=== PATIENT | female | born 1965 | race American Indian/Alaskan Native ===

== ENCOUNTER 2017-12-20 12:01 | Emergency (ER) | payer OTHER, BC ==
[2017-12-20 12:30] VITALS: TEMP 98.6; O2SAT 100
[2017-12-20] MEDS ORDERED: Albuterol-Ipratrop 3 mg / 0.5 (3 ml) UD IH STA (12:46)
[2017-12-20 13:04] LABS: BASO % 0.4 % (0.0-2.0); EOS # 0.1 K/uL (0.0-0.7); EOS % 0.9 % (0.0-4.0); HEMOGLOBIN 12.5 g/dL (11.0-16.0); LYMPH # 1.8 K/uL (1.0-4.3); MEAN CELL VOLUME 88.7 fL (81.0-99.0); MEAN CORPUSCULAR HEMOGLOBIN 30.3 pg (27.0-31.0); MEAN CORPUSCULAR HGB CONC 34.2 g/dL (33.0-37.0); MEAN PLATELET VOLUME 9.9 fL (7.2-11.7); MONO # 0.5 K/uL (0.0-0.8); MONO % 7.7 % (0.0-10.0); NEUT # 3.8 K/uL (1.8-7.0); NRBC % 0.1 % (0.0-2.0); RBC 4.11 Mil/uL (3.80-5.20); RED CELL DISTRIBUTION WIDTH 13.7 % (11.5-14.5); WHITE BLOOD COUNT 6.1 K/uL (4.8-10.8)
[2017-12-20] MEDS ORDERED: Albuterol-Ipratrop 3 mg / 0.5 (3 ml) UD ONE (13:04)
--- NOTE | 2017-12-20 13:06 | C.PDOC ---
History Of Present Illness 52 y/o female presents to ED with c/o headache, cp, sob, nausea and headache developed earlier today while exposed to fume at work. Patient states same symptoms developed last week and was [place] [facility] but states symptoms reoccurred today. Patient reports other coworkers experienced same symptoms and denies fever, chills, nausea, vomiting, cough or any other complaints at this time. Time Seen by Provider: 12/20/17 12:14 Chief Complaint (Nursing): Chest Pain History Per: Patient History/Exam Limitations: no limitations Onset/Duration Of Symptoms: Days Current Symptoms Are (Timing): Still Present Past Medical History Reviewed: Historical Data, Nursing Documentation, Vital Signs Vital Signs: Last Vital Signs Temp 98.6 F 12/20/17 14:38 Pulse 74 12/20/17 14:38 Resp 18 12/20/17 14:38 BP 132/76 12/20/17 14:38 Pulse Ox 100 12/20/17 17:41 - Medical History PMH: HTN Surgical History: No Surg Hx - [facility] Procedures LAPAROSCOP LYSIS-PERITONEAL ADHES (03/22/04) LOCAL VULVAR EXCIS NEC (03/22/04) OTH LAPAROSCOP LOCAL EXCIS/DESTRUCT OVARY (03/22/04) UTERINE LES DESTRUCT NEC (03/22/04) Family History: States: No Known Family Hx - Social History Hx Alcohol Use: Yes Hx Substance Use: No - Immunization History Hx Tetanus Toxoid Vaccination: No Hx Influenza Vaccination: No Hx Pneumococcal Vaccination: No Review Of Systems Constitutional: Negative for: Fever, Chills Cardiovascular: Positive for: Chest Pain Respiratory: Positive for: Shortness of Breath. Negative for: Cough Gastrointestinal: Positive for: Nausea Neurological: Positive for: Headache. Negative for: Weakness, Numbness Physical Exam - Physical Exam Appears: Non-toxic, No Acute Distress Skin: Warm, Dry, No Rash Head: Atraumatic, Normacephalic Eye(s): bilateral: Normal Inspection Oral Mucosa: Moist Neck: Normal ROM, Supple Cardiovascular: Rhythm Regular Respiratory: Normal Breath Sounds, No Rales, No Rhonchi, No Wheezing Gastrointestinal/Abdominal: Soft, No Tenderness, No Guarding, No Rebound Neurological/Psych: Oriented x3, Normal Speech ED Course And Treatment - Laboratory Results Result Diagrams: 12/20/17 12:58 12/20/17 12:58 Lab Interpretation: Normal Urine POC: Negative ECG: Interpreted By Me ECG Rhythm: Sinus Rhythm ECG Interpretation: Normal Rate From EC O2 Sat by Pulse Oximetry: 100 (RA) Pulse Ox Interpretation: Normal - Radiology CXR: Viewed By Me, Read By Radiologist CXR Interpretation: Yes: Cardiomegaly Progress Note: Treated with IVF NSS and duoneb. On re-evaluation lungs clear, in no distress Reassessment Condition: Improved Disposition Counseled Patient/Family Regarding: Studies Performed, Diagnosis, Need For Followup, Rx Given - Disposition Referrals: Zoran Kessler [Staff Provider] - Disposition: HOME/ ROUTINE Disposition Time: 16:00 Condition: GOOD Additional Instructions: Follow up with your PMD for further evaluation Return to ED if any increase symptoms Prescriptions: Albuterol HFA [Ventolin HFA 90 mcg/actuation (8 g)] 2 puff IH [id number] PRN #1 puff PRN Reason: Cough Instructions: Shortness of Breath (Dyspnea) Forms: [employer] (Yi) - POA Present On Arrival: None - Clinical Impression Clinical Impression: Dyspnea - PA / LUG LOADER / Resident Statement MD/DO has reviewed & agrees with the documentation as recorded. - Scribe Statement The provider has reviewed the documentation as recorded by the Maniiblibia Heard All medical record entries made by the King were at my direction and personally dictated by me. I have reviewed the chart and agree that the record accurately reflects my personal performance of the history, physical exam, medical decision making, and the department course for this patient. I have also personally directed, reviewed, and agree with the discharge instructions and disposition.
[2017-12-20 13:19] LABS: ALB/GLOB RATIO 1.2 (1.0-2.1); ALBUMIN 4.2 g/dL (3.5-5.0); ALT/SGPT 37 U/L (9-52); AST/SGOT 30 U/L (14-36); BLOOD UREA NITROGEN 10 mg/dL (7-17); CALCIUM 9.1 mg/dl (8.6-10.4); GFR AFRICAN-AMERICAN > 60; GFR NON-AFRICAN AMERICAN > 60
--- NOTE | 2017-12-20 13:30 | RAD ---
HISTORY: COMPARISON: No prior. TECHNIQUE: Chest PA and lateral FINDINGS: LINES AND TUBES: None. LUNG AND PLEURA: The lungs are well inflated and clear. No pleural effusion or pneumothorax. HEART AND MEDIASTINUM: There is mild cardiomegaly. The hilar and mediastinal contours are within normal limits. SKELETAL STRUCTURES: The bony structures are within normal limits for the patient's age. VISUALIZED UPPER ABDOMEN: Normal. OTHER FINDINGS: None. IMPRESSION: No active pulmonary disease. Mild cardiomegaly.
[2017-12-20 14:12] LABS: HCG,QUALITATIVE URINE NEGATIVE (NEGATIVE)
[2017-12-20 14:16] LABS: SQUAMOUS EPITHIAL 2 /hpf (0-5); URINE BACTERIA OCC (<OCC); URINE BILIRUBIN NEGATIVE (NEGATIVE); URINE BLOOD NEGATIVE (NEGATIVE); URINE CLARITY Hazy (Clear); URINE COLOR Yellow (YELLOW); URINE GLUCOSE (UA) NORMAL (Normal); URINE LEUKOCYTE ESTERASE NEG Leu/uL (Negative); URINE PROTEIN NEGATIVE (NEGATIVE); URINE UROBILINOGEN NORMAL mg/dL (0.2-1.0)
[2017-12-20 14:39] VITALS: BP 132/76; PULSE 74; RESP 18
== END 2017-12-20 14:40 | disposition home or self-care (01) ==
LOC: C.ER 12:01
DX: R06.00 Dyspnea, unspecified (principal); I10 Essential (primary) hypertension

== ENCOUNTER 2018-04-10 12:30 | Inpatient (IN) | payer BC ==
--- NOTE | 2018-04-10 13:23 | C.PDOC ---
History Of Present Illness 52 year old female, whose PMHx includes Hypertension, colon cancer, and colitis, presents to the ED for evaluation of back pain which has been intermittent for 6 months, but worsened over the past 2 days. Patient reports pain to her bilateral flank area. She also reports foul-smelling urine intermittently for the past 6 months. Patient was evaluated in [facility] four days ago, was diagnosed with Urinary Tract Infection and started on Cipro. She received a call last night that her urine culture has demonstrated to be resistant to multiple antibiotics. Patient states she is allergic to penicillin and was told there were a limited variety of antibiotics she can be given for treatment. Patient was also told that her back pain might indicate a kidney infection, and was sent to the ED by her PMD for further evaluation. Patient also reports she had three episodes of mucoid diarrhea (non-bloody) yesterday, denies having any episodes today. She denies fever, chills, and abdominal pain at this time. Family history: HTN and DM Surgical history: hysterectomy, appendectomy, partial colon resection social history: admits to occasional drinking, denies tobacco or drug use PMD: Dr. Livingston Time Seen by Provider: 04/10/18 13:09 Chief Complaint (Nursing): Back Pain History Per: Patient History/Exam Limitations: no limitations Onset/Duration Of Symptoms: Days (2), Intermittent Episodes Current Symptoms Are (Timing): Worse Quality Of Discomfort: "Pain" Additional History Per: Patient Past Medical History Reviewed: Historical Data, Nursing Documentation, Vital Signs Vital Signs: Last Vital Signs Temp 97.8 F 04/10/18 12:44 Pulse 73 04/10/18 12:44 Resp 20 04/10/18 12:44 BP 157/89 H 04/10/18 12:44 Pulse Ox 99 04/10/18 12:44 - Medical History PMH: HTN Surgical History: Appendectomy - [facility] Procedures LAPAROSCOP LYSIS-PERITONEAL ADHES (03/22/04) LOCAL VULVAR EXCIS NEC (03/22/04) OTH LAPAROSCOP LOCAL EXCIS/DESTRUCT OVARY (03/22/04) UTERINE LES DESTRUCT NEC (03/22/04) Family History: States: Unknown Family Hx - Social History Hx Alcohol Use: Yes Hx Substance Use: No - Immunization History Hx Tetanus Toxoid Vaccination: No Hx Influenza Vaccination: No Hx Pneumococcal Vaccination: No Review Of Systems Constitutional: Negative for: Fever, Chills Gastrointestinal: Positive for: Diarrhea. Negative for: Abdominal Pain Musculoskeletal: Positive for: Back Pain Physical Exam - Physical Exam Appears: Non-toxic, No Acute Distress Skin: Warm, Dry Head: Atraumatic, Normacephalic Eye(s): bilateral: PERRL, EOMI Oral Mucosa: Moist Throat: No Erythema, No Exudate Neck: Normal ROM, Trachea Midline Lymphatic: No Adenopathy Chest: Symmetrical Cardiovascular: Rhythm Regular, No Murmur Respiratory: Normal Breath Sounds, No Wheezing Gastrointestinal/Abdominal: Soft, Tenderness (diffuse ), No Distention, No Guarding, No Rebound Back: CVA Tenderness (bilaterally ), No Muscle Spasm Extremity: Normal ROM, No Deformity Neurological/Psych: Oriented x3, Normal Motor, Normal Sensation ED Course And Treatment - Laboratory Results Result Diagrams: 04/10/18 14:42 04/10/18 14:44 O2 Sat by Pulse Oximetry: 99 (on RA) Pulse Ox Interpretation: Normal Medical Decision Making Medical Decision Making: Impression: abdominal pain vs urinary tract infection vs flank pain Differential Diagnoses include but are not limited to: pyelonephritis vs colitis vs musculoskeletal pain vs sepsis vs infectious diarrhea Progress: Bloodwork, urinalysis, CT A/P ordered and reviewed. IV Fluids given. SNEHAL Moncada at [facility] who faxed report of sensitivities of urine culture. Labs demonstrate continued UTI but otherwise no significant abnormalities. Pt to be hospitalized for pyelonephritis failed outpatient treatment. SNEHAL Neely Hospitalist. Disposition - Disposition Disposition Time: 17:00 Condition: FAIR - POA Present On Arrival: None - Clinical Impression Clinical Impression: Pyelonephritis - Scribe Statement The provider has reviewed the documentation as recorded by the Scribe (Ese Neely) Provider Attestation: All medical record entries made by the Scribe were at my direction and personally dictated by me. I have reviewed the chart and agree that the record accurately reflects my personal performance of the history, physical exam, medical decision making, and the department course for this patient. I have also personally directed, reviewed, and agree with the discharge instructions and disposition.
[2018-04-10] MEDS ORDERED: Iohexol 240 (50 ml) PO STA (13:26)
[2018-04-10] MEDS ORDERED: Sodium Chloride 0.9% 500 ML IV ONE (13:26)
[2018-04-10 13:52] LABS: SQUAMOUS EPITHIAL 10 /hpf (0-5); URINE BACTERIA MOD (<OCC); URINE BILIRUBIN NEGATIVE (NEGATIVE); URINE BLOOD NEGATIVE (NEGATIVE); URINE CLARITY Hazy (Clear); URINE COLOR Yellow (YELLOW); URINE GLUCOSE (UA) NORMAL (Normal); URINE LEUKOCYTE ESTERASE NEG Leu/uL (Negative); URINE PROTEIN NEGATIVE (NEGATIVE); URINE UROBILINOGEN NORMAL mg/dL (0.2-1.0)
[2018-04-10] MEDS ORDERED: Iohexol 240 (50 ml) ONE (14:14)
[2018-04-10] MEDS ORDERED: Sodium Chloride 0.9% 1,000 ML ONE ×2 (14:41→18:16)
[2018-04-10 14:45] LABS: BASO % 0.8 % (0.0-2.0); EOS # 0.1 K/uL (0.0-0.7); HEMOGLOBIN 14.4 g/dL (11.0-16.0); LYMPH # 1.8 K/uL (1.0-4.3); LYMPH % 31.6 % (20.0-40.0); MEAN CELL VOLUME 88.1 fL (81.0-99.0); MEAN CORPUSCULAR HEMOGLOBIN 30.2 pg (27.0-31.0); MEAN CORPUSCULAR HGB CONC 34.3 g/dL (33.0-37.0); MEAN PLATELET VOLUME 9.9 fL (7.2-11.7); MONO # 0.5 K/uL (0.0-0.8); MONO % 8.5 % (0.0-10.0); NEUT # 3.2 K/uL (1.8-7.0); NEUT % 57.1 % (50.0-75.0); RBC 4.76 Mil/uL (3.80-5.20); RED CELL DISTRIBUTION WIDTH 13.1 % (11.5-14.5); WHITE BLOOD COUNT 5.6 K/uL (4.8-10.8)
[2018-04-10 15:02] LABS: ALB/GLOB RATIO 1.1 (1.0-2.1); ALBUMIN 4.2 g/dL (3.5-5.0); ALT/SGPT 27 U/L (9-52); AST/SGOT 24 U/L (14-36); BLOOD UREA NITROGEN 12 mg/dL (7-17); CALCIUM 9.6 mg/dl (8.6-10.4); GFR NON-AFRICAN AMERICAN > 60; LIPASE 131 U/L (23-300)
[2018-04-10] MEDS ORDERED: Tobramycin Sulfate 40 mg/ml (2ml) Inj IVPB STA (16:47)
[2018-04-10] MEDS ORDERED: TOBRAMYCIN SULFATE IVPB SCH (17:00)
[2018-04-10] MEDS ORDERED: SODIUM CHLORIDE 0.9% IVPB SCH (17:00)
--- NOTE | 2018-04-10 17:05 | CP.PCM.HP ---
<Mayuri Whitt - Last Filed: 04/10/18 18:50> History of Present Illness - History of Present Illness History of Present Illness: History and Physical - Hospitalist Service CC: UTI symptoms, back pain HPI: Patient is a 52 year old female with past medical history of hypertension, colitis, colon cancer s/p resection in 2014 who presents to the emergency department for urinary tract infection. Patient states that she was seen at urgent care for foul smelling urine and was prescribed Ciprofloxacin 4 days ago. Patient received a call from her PMD today stating the urine culture was resistant to both ciprofloxacin and bactrim and instructed her to come to the emergency dept. Patient states that for the past six months she has been experiencing right sided low back pain that is now radiating to the left. Pain is constant in nature, worse with movement. Denies any alleviating factors. Rates the pain a 9/10 on pain scale. She admits to using Tylenol and Ibuprofen at home with minimal relief. She also states that she has been having foul smelling urine since before October 2017. She admits to some urinary incontinence, where she loses urine before making it to the bathroom. She denies any dysuria or pain with urination. For the past few days, patient reports having lower abdominal pain. States that the pain "feels like my intestines are raw". She has 3-4 episodes of mucoid diarrhea yesterday, denies any bowel movement today. She also admits to having a fever of 101.0 yesterday as well that improved with Tylenol. Reports that her last colitis flare up was a couple of months ago. She denies nausea/vomiting, headaches, dizziness, cp, palpitations, sob, saddle anes thesia, loss of bowel function, blood in the stool, hematuria. 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 History: Mother - Hypertension, DM; Father - HTN, CVA at age 70 [employer] History: Sexually active, admits to having occasional physiologic discharge Present on Admission - Present on Admission Any Indicators Present on Admission: No Past Patient History - Past Social History Smoking Status: Never Smoked - CARDIAC Hx Hypertension: Yes - HEMATOLOGICAL/ONCOLOGICAL Hx Cancer: Yes (colon) - GASTROINTESTINAL Hx Colitis: Yes - GENITOURINARY/GYNECOLOGICAL Hx Urinary Tract Infection: Yes Other/Comment: kidney infections - PSYCHIATRIC Hx Substance Use: No - SURGICAL HISTORY Hx Appendectomy: Yes - ANESTHESIA Hx Anesthesia: Yes Hx Anesthesia Reactions: No Meds Allergies/Adverse Reactions: Allergies Allergy/AdvReac Type Severity Reaction Status Date / Time Penicillins Allergy Verified 04/10/18 12:50 Physical Exam - Constitutional Appears: Non-toxic, No Acute Distress - Head Exam Head Exam: ATRAUMATIC, NORMAL INSPECTION, NORMOCEPHALIC - Eye Exam Eye Exam: EOMI, Normal appearance Pupil Exam: NORMAL ACCOMODATION - ENT Exam ENT Exam: Mucous Membranes Moist - Neck Exam Neck exam: Positive for: Full Rom - Respiratory Exam Respiratory Exam: Clear to Auscultation Bilateral, NORMAL BREATHING PATTERN. absent: Rales, Rhonchi, Wheezes - Cardiovascular Exam Cardiovascular Exam: REGULAR RHYTHM, +S1, +S2. absent: Systolic Murmur - GI/Abdominal Exam GI & Abdominal Exam: Distended (Mildly distended), Normal Bowel Sounds, Soft, Tenderness (RLQ, LLQ, suprapubic tenderness to palpation). absent: Guarding, Rebound, Rigid - Extremities Exam Extremities exam: Positive for: full ROM, normal inspection, pedal pulses present. Negative for: pedal edema, tenderness - Back Exam Back exam: CVA tenderness (L), CVA tenderness (R). absent: rash noted - Neurological Exam Neurological exam: Alert, CN II-XII Intact, Oriented x3 - Psychiatric Exam Psychiatric exam: Normal Affect, Normal Mood - Skin Skin Exam: Dry, Normal Color, Warm Results - Vital Signs Recent Vital Signs: Last Vital Signs Temp 97.6 F 04/10/18 16:58 Pulse 65 04/10/18 16:58 Resp 18 04/10/18 16:58 BP 122/83 04/10/18 16:58 Pulse Ox 98 04/10/18 16:58 - Labs Result Diagrams: 04/10/18 14:42 04/10/18 14:44 Labs: Laboratory Results - last 24 hr 04/10/18 04/10/18 04/10/18 13:37 14:42 14:44 WBC 5.6 RBC 4.76 Hgb 14.4 Hct 41.9 MCV 88.1 MCH 30.2 MCHC 34.3 RDW 13.1 Plt Count 188 MPV 9.9 Neut % (Auto) 57.1 Lymph % (Auto) 31.6 [place] % (Auto) 8.5 Eos % (Auto) 2.0 Baso % (Auto) 0.8 Neut # (Auto) 3.2 Lymph # (Auto) 1.8 [place] # (Auto) 0.5 Eos # (Auto) 0.1 Baso # (Auto) 0.0 Sodium 143 Potassium 4.0 Chloride 106 Carbon Dioxide 23 Anion Gap 18 BUN 12 Creatinine 0.8 Est GFR ( Amer) > 60 Est GFR (Non-Af Amer) > 60 Random Glucose 83 Lactic Acid Calcium 9.6 Total Bilirubin 0.6 AST 24 ALT 27 Alkaline Phosphatase 126 Total Protein 8.2 Albumin 4.2 Globulin 4.0 H Albumin/Globulin Ratio 1.1 Lipase 131 Urine Color Yellow Urine Clarity Hazy Urine pH 6.0 Ur Specific [place] 1.017 Urine Protein Negative Urine Glucose (UA) Normal Urine Ketones Negative Urine Blood Negative Urine Nitrate Positive H Urine Bilirubin Negative Urine Urobilinogen Normal Ur Leukocyte Esterase Neg Urine WBC (Auto) 4 Urine RBC (Auto) 1 Ur Squamous Epith Cells 10 H Urine Bacteria Mod H 04/10/18 14:44 WBC RBC Hgb Hct MCV MCH MCHC RDW Plt Count MPV Neut % (Auto) Lymph % (Auto) [place] % (Auto) Eos % (Auto) Baso % (Auto) Neut # (Auto) Lymph # (Auto) [place] # (Auto) Eos # (Auto) Baso # (Auto) Sodium Potassium Chloride Carbon Dioxide Anion Gap BUN Creatinine Est GFR ( Amer) Est GFR (Non-Af Amer) Random Glucose Lactic Acid 1.3 Calcium Total Bilirubin AST ALT Alkaline Phosphatase Total Protein Albumin Globulin Albumin/Globulin Ratio Lipase Urine Color Urine Clarity Urine pH Ur Specific [place] Urine Protein Urine Glucose (UA) Urine Ketones Urine Blood Urine Nitrate Urine Bilirubin Urine Urobilinogen Ur Leukocyte Esterase Urine WBC (Auto) Urine RBC (Auto) Ur Squamous Epith Cells Urine Bacteria Assessment & Plan - Assessment and Plan (Free Text) Assessment: A/P: Patient is a 52 year old female with past medical history of hypertension, colon cancer s/p partial colon resection who was sent to the emergency department for urinary tract infection resistant to multiple antibiotics. Patient complaining of right sided low back pain, lower abdominal pain and diarrhea x 2 days with fever. Abdominal pain r/o Pyelonephritis vs Nephrolithiasis vs Diverticulitis -Stable, afebrile -We will admit inpatient -Antibiotics: Aztreonam 2gm Q8H IVPB -CT abd/pelvis PO contrast ordered, f/u official report -Diet: full liquid -Fluids: NS at 100cc/hr -Toradol 15mg Q6H prn, Tylenol 650mg Q6H prn fever -F/U stool cultures, fecal leukocytes, ova/parasites, c diff Urinary Tract Infection -Urine culture 04/06/18 grew E coli resistent to Bactrim, Ciprofloxacin, Ampicillin -UA on admission +nitrates, +squamous epithelial cells, moderate bacteria, urine culture pending -Repeat UA and urine culture ordered (clean catch) -Antibiotics: Aztreonam 2gm Q8H IVPB -Fluids: NS at 100cc/hr -Infectious Disease on consult, Dr Dunbar, help appreciated Upper respiratory tract infection -Patient with non-productive cough -Robitussin 100mg Q4H prn cough -F/U official CXR report Low Back pain -Lumbar Xray 01/2018 showed probable L5-S1 disc space narrowing -mild, no compression fractures (see full report) -Toradol 15mg Q6H prn pain History of Hypertension -Patient is on Lisinopril 5mg PO daily at home -Currently normatensive -Will monitor at this time Colon cancer s/p partial colon resection -Last colonoscopy was btw end of 2016-beginning of 2017, patient states it was normal -F/U CT abd/pelvis with PO contrast GI/DVT ppx -Protonix 40mg IVP daily -Lovenox 40mg SC daily Plan discussed with Dr Zaida Whitt DO PGY-2 <Raman Cerda - Last Filed: 04/11/18 07:13> Results - Vital Signs Recent Vital Signs: Last Vital Signs Temp 97.6 F 04/10/18 23:30 Pulse 61 04/10/18 23:30 Resp 20 04/10/18 23:30 BP 137/88 04/10/18 23:30 Pulse Ox 99 10/17/18 00:12 - Labs Result Diagrams: 04/10/18 14:42 04/10/18 14:44 Labs: Laboratory Results - last 24 hr 04/10/18 04/10/18 04/10/18 13:37 14:42 14:44 WBC 5.6 RBC 4.76 Hgb 14.4 Hct 41.9 MCV 88.1 MCH 30.2 MCHC 34.3 RDW 13.1 Plt Count 188 MPV 9.9 Neut % (Auto) 57.1 Lymph % (Auto) 31.6 [place] % (Auto) 8.5 Eos % (Auto) 2.0 Baso % (Auto) 0.8 Neut # (Auto) 3.2 Lymph # (Auto) 1.8 [place] # (Auto) 0.5 Eos # (Auto) 0.1 Baso # (Auto) 0.0 Sodium 143 Potassium 4.0 Chloride 106 Carbon Dioxide 23 Anion Gap 18 BUN 12 Creatinine 0.8 Est GFR ( Amer) > 60 Est GFR (Non-Af Amer) > 60 Random Glucose 83 Lactic Acid Calcium 9.6 Total Bilirubin 0.6 AST 24 ALT 27 Alkaline Phosphatase 126 Total Protein 8.2 Albumin 4.2 Globulin 4.0 H Albumin/Globulin Ratio 1.1 Lipase 131 Urine Color Yellow Urine Clarity Hazy Urine pH 6.0 Ur Specific [place] 1.017 Urine Protein Negative Urine Glucose (UA) Normal Urine Ketones Negative Urine Blood Negative Urine Nitrate Positive H Urine Bilirubin Negative Urine Urobilinogen Normal Ur Leukocyte Esterase Neg Urine WBC (Auto) 4 Urine RBC (Auto) 1 Ur Squamous Epith Cells 10 H Urine Bacteria Mod H 04/10/18 14:44 WBC RBC Hgb Hct MCV MCH MCHC RDW Plt Count MPV Neut % (Auto) Lymph % (Auto) [place] % (Auto) Eos % (Auto) Baso % (Auto) Neut # (Auto) Lymph # (Auto) [place] # (Auto) Eos # (Auto) Baso # (Auto) Sodium Potassium Chloride Carbon Dioxide Anion Gap BUN Creatinine Est GFR ( Amer) Est GFR (Non-Af Amer) Random Glucose Lactic Acid 1.3 Calcium Total Bilirubin AST ALT Alkaline Phosphatase Total Protein Albumin Globulin Albumin/Globulin Ratio Lipase Urine Color Urine Clarity Urine pH Ur Specific [place] Urine Protein Urine Glucose (UA) Urine Ketones Urine Blood Urine Nitrate Urine Bilirubin Urine Urobilinogen Ur Leukocyte Esterase Urine WBC (Auto) Urine RBC (Auto) Ur Squamous Epith Cells Urine Bacteria Attending/Attestation - Attestation I have personally seen and examined this patient.: Yes I have fully participated in the care of the patient.: Yes I have reviewed all pertinent clinical information: Yes Notes (Text): 04/11/18 07:05 Medical attending: Patient was seen and examined by me. Agree with the above note by the resident The patient was not in any acute distress when we came and saw and examined but she did have ongoing abdominal pain in the lower quadrants. There is also flank pain bilaterally as well. She was sent in by outpatient primary physician due to concerns for E coli on a recent culture that was mutlidrug resistant. Patient has a strong penicillin allergy as well so we will try to get ID evaluation. For now will use Aztreonam IV When we saw the patient last night she had just returned from CT scan and our concerns were the potential for pyelonephritis or potential for diverticulitis. She has mentioned to us that she's had ongoing intermitten dirrhea as well, so we will check for C diff. As mentioned above there is a history of cancer requiring surgery. And also there is a history of colitis as well. Raman Cerda
[2018-04-10] MEDS ORDERED: Sodium Chloride 0.9% 1,000 ML IV SCH (17:30)
--- NOTE | 2018-04-10 18:13 | CT ---
PROCEDURE: CT Abdomen and Pelvis without IV contrast. HISTORY: abd pain COMPARISON: None available. TECHNIQUE: Contiguous axial images of the abdomen and pelvis. Oral contrast was administered. No IV contrast given. Coronal and Sagittal reformats generated and reviewed. Radiation dose: Total exam DLP = 865.73 mGy-cm. This CT exam was performed using one or more of the following dose reduction techniques: Automated exposure control, adjustment of the mA and/or kV according to patient size, and/or use of iterative reconstruction technique. FINDINGS: There is limited evaluation of the solid organs without the administration of IV contrast. LOWER THORAX: No visible consolidation, pleural effusion, or pneumothorax. LIVER: Unremarkable unenhanced appearance. GALLBLADDER AND BILE DUCTS: Unremarkable unenhanced appearance. PANCREAS: Unremarkable unenhanced appearance. SPLEEN: Unremarkable unenhanced appearance. ADRENALS: Unremarkable unenhanced appearance. KIDNEYS AND URETERS: No hydronephrosis or obstructing renal calculus. BLADDER: Contracted urinary bladder limits evaluation. REPRODUCTIVE: The uterus is absent presumably due to hysterectomy. APPENDIX: No secondary signs of acute appendicitis. BOWEL: The stomach is nondistended. The bowel loops appear within normal limits of caliber without evidence of intestinal obstruction. Anastomotic bowel suture material, descending colon near the splenic flexure. PERITONEUM: No significant free fluid. No definite free air. LYMPH NODES: No bulky lymphadenopathy identified. VASCULATURE: No atherosclerotic calcifications of the aorta identified. No aortic aneurysm. BONES: No acute osseous abnormality is detected. OTHER FINDINGS: Small fat containing umbilical hernia. IMPRESSION: No acute findings identified. Incidental findings as above.
[2018-04-10] MEDS: Aztreonam 2 GM in Sodium Chloride 0.9% 100 ML IVPB SCH (18:15)
[2018-04-10] MEDS ORDERED: guaiFENesin 100 mg/5 ml Syrup UD PO PRN (18:40)
--- NOTE | 2018-04-10 19:00 | RAD ---
Date of service: 04/10/2018 PROCEDURE: CHEST RADIOGRAPH, 1 VIEW HISTORY: r/o infiltrate COMPARISON: 01/11/2018 FINDINGS: LUNGS: Clear. PLEURA: No pneumothorax or pleural fluid seen. CARDIOVASCULAR: No radiographic findings to suggest acute or significant cardiovascular disease. OSSEOUS STRUCTURES: No significant abnormalities. VISUALIZED UPPER ABDOMEN: Normal. OTHER FINDINGS: None. IMPRESSION: No active disease.No significant interval change compared to the prior examination(s).
[2018-04-10] MEDS ORDERED: Sodium Chloride 0.9% 250 ML IV ONE (19:06)
[2018-04-10] MEDS ORDERED: metroNIDAZOLE IV 500 mg/100 ml 500 MG/100 ML BAG ONE (19:14)
[2018-04-10] MEDS: metroNIDAZOLE IV 500 mg/100 ml 500 MG/100 ML BAG IVPB SCH (19:15)
[2018-04-11] MEDS: Aztreonam 2 GM in Sodium Chloride 0.9% 100 ML IVPB SCH ×3 (00:35→17:38)
[2018-04-11] MEDS: metroNIDAZOLE IV 500 mg/100 ml 500 MG/100 ML BAG IVPB SCH ×4 (02:36→21:06)
[2018-04-11] MEDS ORDERED: Influenza Vaccine 60 MCG/0.5 ML SYR (3 yr & up) IM ONE (04:30)
[2018-04-11] MEDS ORDERED: Pneumococcal 23-Valent Vaccine IM ONE (04:30)
[2018-04-11] MEDS: Sodium Chloride 0.9% 1,000 ML IV SCH ×3 (04:36→13:43)
[2018-04-11] MEDS: Enoxaparin 40 mg Syringe SC SCH (09:27)
--- NOTE | 2018-04-11 09:42 | CP.PCM.PN ---
<Boby Childress - Last Filed: 04/11/18 16:55> Subjective - Date & Time of Evaluation Date of Evaluation: 04/11/18 Time of Evaluation: 09:42 - Subjective Subjective: Boby Childress PGY-1, Medicine progress note Pt was seen and examined at bedside. Pt is resting comfortably. No acute events overnight. Pt reports that her back pain is improved, but still reports abdominal pain and foul smelling urine. Pt denies fevers, chills, chest pain, sob, n/v/d, hematuria, vaginal discharge, hematochezia, melena. Pt has not had a bowel movement today. Objective - Vital Signs/Intake and Output Vital Signs (last 24 hours): Temp Pulse Resp BP Pulse Ox 98.6 F 64 20 133/92 H 96 04/11/18 07:52 04/11/18 07:52 04/11/18 07:52 04/11/18 07:52 04/11/18 07:52 Intake and Output: 04/11/18 04/11/18 06:59 18:59 Intake Total 1040 Balance 1040 - Medications Medications: Current Medications Acetaminophen (Tylenol 325mg Tab) 650 mg PO Q6 PRN PRN Reason: Fever >100.4 F Enoxaparin Sodium (Lovenox) 40 mg SC DAILY [facility] Last Admin: 04/11/18 09:27 Dose: 40 mg Guaifenesin (Robitussin) 100 mg PO Q4H PRN PRN Reason: Cough Aztreonam 2 gm/ Sodium (Chloride) 100 mls @ 200 mls/hr IVPB Q8H [facility]; Protocol Last Admin: 04/11/18 09:27 Dose: 200 mls/hr Metronidazole (Flagyl) 500 mg in 100 mls @ 100 mls/hr IVPB Q8H [facility]; Protocol Last Admin: 04/11/18 04:36 Dose: Not Given Sodium Chloride (Sodium Chloride 0.9%) 1,000 mls @ 100 mls/hr IV .Q10H [facility] Last Admin: 04/11/18 04:36 Dose: Not Given Influenza Virus Vaccine (Fluzone Quad [id number]) 60 mcg IM .ONCE ONE Stop: 04/13/18 10:01 Ketorolac Tromethamine (Toradol) 15 mg IVP Q6 PRN PRN Reason: Pain, moderate (4-7) Last Admin: 04/11/18 04:24 Dose: 15 mg Pantoprazole Sodium (Protonix Inj) 40 mg IVP DAILY [facility] Last Admin: 04/11/18 09:27 Dose: 40 mg Pneumococcal Polyvalent Vaccine (Pneumovax 23 Vaccine) 0.5 ml IM .ONCE ONE Stop: 04/13/18 10:01 - Labs Labs: 04/10/18 14:42 04/10/18 14:44 - Constitutional Appears: Non-toxic, No Acute Distress - Head Exam Head Exam: NORMAL INSPECTION - Eye Exam Eye Exam: EOMI, Normal appearance - ENT Exam ENT Exam: Mucous Membranes Dry - Respiratory Exam Respiratory Exam: Clear to Ausculation Bilateral, NORMAL BREATHING PATTERN. absent: Rales, Rhonchi, Wheezes, Respiratory Distress - Cardiovascular Exam Cardiovascular Exam: REGULAR RHYTHM, +S1, +S2 - GI/Abdominal Exam GI & Abdominal Exam: Soft, Tenderness (mild tenderness to palpation across lowere abdomen), Normal Bowel Sounds. absent: Distended, Firm, Guarding, Rigid, Rebound Additional comments: (+) suprapubic pressure on palpation - Extremities Exam Extremities Exam: Normal Capillary Refill, Normal Inspection. absent: Calf Tenderness, Pedal Edema - Back Exam Back Exam: CVA tenderness (L), CVA tenderness (R) (greater than left) - Neurological Exam Neurological Exam: Alert, Awake - Psychiatric Exam Psychiatric exam: Normal Affect, Normal Mood - Skin Skin Exam: Dry, Normal Color, Warm Assessment and Plan - Assessment and Plan (Free Text) Assessment: Patient is a 52 year old female with past medical history of hypertension, colon cancer s/p partial colon resection who was sent to the emergency department for urinary tract infection resistant to multiple antibiotics. Patient complaining of right sided low back pain, lower abdominal pain and diarrhea x 2 days with fever. Plan: Abdominal pain, likely secondary to UTI, possible colitis -afebrile, not tachycardic, no leukocytosis -lipase is 131 on admission -Abdominal/Pelvic CT with PO contrast shows no acute changes. (see full report) -Urine culture 04/06/18 grew E coli resistent to Bactrim, Ciprofloxacin, Ampicillin -UA on admission +nitrates, +squamous epithelial cells, moderate bacteria -Urine culture prelim shows greater than gram negative khadra 100,000 cfu/mL -Antibiotics: Metronidazole 500 mg Q8H for anaerobic coverage, Aztreonam 2gm Q8H IVPB for gram negative coverage -Toradol 15mg Q6H prn, Tylenol 650mg Q6H prn fever -Infectious disease consulted, Dr. Dunbar Diarrhea -no bouts of diarrhea today -lipase is normal as noted above -F/U stool cultures, fecal leukocytes, lactoferrin, ova/parasites, c diff, fecal fat Upper respiratory tract infection -Patient with non-productive cough, which has resolved since admission and treatment -continue Robitussin 100mg Q4H prn cough -CXR shows no active disease Low Back pain -Lumbar Xray 01/2018 showed probable L5-S1 disc space narrowing -mild, no compression fractures (see full report) -Toradol 15mg Q6H prn pain History of Hypertension -Patient is on Lisinopril 5mg PO daily at home -Will monitor at this time Colon cancer s/p partial colon resection -Last colonoscopy was btw end of 2016-beginning of 2017, patient states it was normal PPX/Diet -Protonix 40mg IVP daily for GI ppx -Lovenox 40mg SC daily for VTE ppx -FLD Case discussed with attending physician, Dr. Cerda <Raman Cerda - Last Filed: 04/11/18 17:14> Objective - Vital Signs/Intake and Output Vital Signs (last 24 hours): Temp Pulse Resp BP Pulse Ox 97.6 F 65 20 123/82 98 04/11/18 16:00 04/11/18 16:00 04/11/18 16:00 04/11/18 16:00 04/11/18 16:00 Intake and Output: 04/11/18 04/11/18 06:59 18:59 Intake Total 1040 Balance 1040 - Medications Medications: Current Medications Acetaminophen (Tylenol 325mg Tab) 650 mg PO Q6 PRN PRN Reason: Fever >100.4 F Enoxaparin Sodium (Lovenox) 40 mg SC DAILY [facility] Last Admin: 04/11/18 09:27 Dose: 40 mg Guaifenesin (Robitussin) 100 mg PO Q4H PRN PRN Reason: Cough Last Admin: 04/11/18 11:03 Dose: 100 mg Aztreonam 2 gm/ Sodium (Chloride) 100 mls @ 200 mls/hr IVPB Q8H [facility]; Protocol Last Admin: 04/11/18 09:27 Dose: 200 mls/hr Metronidazole (Flagyl) 500 mg in 100 mls @ 100 mls/hr IVPB Q8H [facility]; Protocol Last Admin: 04/11/18 12:58 Dose: 100 mls/hr Sodium Chloride (Sodium Chloride 0.9%) 1,000 mls @ 100 mls/hr IV .Q10H [facility] Last Admin: 04/11/18 13:43 Dose: Not Given Influenza Virus Vaccine (Fluzone Quad [id number]) 60 mcg IM .ONCE ONE Stop: 04/13/18 10:01 Ketorolac Tromethamine (Toradol) 15 mg IVP Q6 PRN PRN Reason: Pain, moderate (4-7) Last Admin: 04/11/18 04:24 Dose: 15 mg Pantoprazole Sodium (Protonix Inj) 40 mg IVP DAILY [facility] Last Admin: 04/11/18 09:27 Dose: 40 mg Pneumococcal Polyvalent Vaccine (Pneumovax 23 Vaccine) 0.5 ml IM .ONCE ONE Stop: 04/13/18 10:01 - Labs Labs: 04/11/18 11:26 04/11/18 11:26 Attending/Attestation - Attestation I have personally seen and examined this patient.: Yes I have fully participated in the care of the patient.: Yes I have reviewed all pertinent clinical information, including history, physical exam and plan: Yes Notes (Text): 04/11/18 17:12 Medical attending: Patient was seen and examined by me as well. Reviewed the above note by the resident and agree with the above note The patient was not in any acute distress when I came and saw however she explained to us she was still having some of the abdominal pain as well as flank pain like yesterday. No fever, and lab work remains stable for the time being. We are pending cultures at this moment. The patient remains on IV aztreonam as well as IV flagly. The patient's lab work ordered yesterday somehow got cancelled. We should check for CDiff as well thank you Raman Cerda
[2018-04-11] MEDS ORDERED: Enoxaparin 40 mg Syringe SC SCH (10:00)
[2018-04-11] MEDS: guaiFENesin 100 mg/5 ml Syrup UD PO PRN (11:03)
[2018-04-11 11:40] LABS: BASO % 0.7 % (0.0-2.0); EOS # 0.1 K/uL (0.0-0.7); EOS % 2.4 % (0.0-4.0); HEMOGLOBIN 13.5 g/dL (11.0-16.0); LYMPH # 1.5 K/uL (1.0-4.3); LYMPH % 35.1 % (20.0-40.0); MEAN CELL VOLUME 86.8 fL (81.0-99.0); MEAN CORPUSCULAR HEMOGLOBIN 29.5 pg (27.0-31.0); MEAN PLATELET VOLUME 9.5 fL (7.2-11.7); MONO # 0.3 K/uL (0.0-0.8); MONO % 6.5 % (0.0-10.0); NEUT # 2.4 K/uL (1.8-7.0); NEUT % 55.3 % (50.0-75.0); NRBC % 0.1 % (0.0-2.0); RBC 4.57 Mil/uL (3.80-5.20); RED CELL DISTRIBUTION WIDTH 13.4 % (11.5-14.5); WHITE BLOOD COUNT 4.4 K/uL (4.8-10.8)
[2018-04-11 12:16] LABS: ALB/GLOB RATIO 1.1 (1.0-2.1); ALBUMIN 4.2 g/dL (3.5-5.0); ALT/SGPT 26 U/L (9-52); AST/SGOT 25 U/L (14-36); BLOOD UREA NITROGEN 9 mg/dL (7-17); CALCIUM 9.4 mg/dl (8.6-10.4); GFR NON-AFRICAN AMERICAN > 60
[2018-04-11 14:02] LABS: SQUAMOUS EPITHIAL 2 /hpf (0-5); URINE BILIRUBIN NEGATIVE (NEGATIVE); URINE BLOOD NEGATIVE (NEGATIVE); URINE CLARITY Clear (Clear); URINE COLOR Straw (YELLOW); URINE GLUCOSE (UA) NORMAL (Normal); URINE LEUKOCYTE ESTERASE NEG Leu/uL (Negative); URINE PROTEIN NEGATIVE (NEGATIVE); URINE UROBILINOGEN NORMAL mg/dL (0.2-1.0)
--- NOTE | 2018-04-11 14:35 | CP.PCM.CON ---
History of Present Illness - History of Present Illness History of Present Illness: dictated Past Patient History - Past Social History Smoking Status: Never Smoked - CARDIAC Hx Hypertension: Yes - HEMATOLOGICAL/ONCOLOGICAL Hx Cancer: Yes (colon) - GASTROINTESTINAL Hx Colitis: Yes - GENITOURINARY/GYNECOLOGICAL Hx Urinary Tract Infection: Yes Other/Comment: kidney infections - PSYCHIATRIC Hx Substance Use: No - SURGICAL HISTORY Hx Appendectomy: Yes - ANESTHESIA Hx Anesthesia: Yes Hx Anesthesia Reactions: No Meds Allergies/Adverse Reactions: Allergies Allergy/AdvReac Type Severity Reaction Status Date / Time Penicillins Allergy Verified 04/10/18 12:50 - Medications Medications: Current Medications Acetaminophen (Tylenol 325mg Tab) 650 mg PO Q6 PRN PRN Reason: Fever >100.4 F Enoxaparin Sodium (Lovenox) 40 mg SC DAILY [facility] Last Admin: 04/11/18 09:27 Dose: 40 mg Guaifenesin (Robitussin) 100 mg PO Q4H PRN PRN Reason: Cough Last Admin: 04/11/18 11:03 Dose: 100 mg Aztreonam 2 gm/ Sodium (Chloride) 100 mls @ 200 mls/hr IVPB Q8H [facility]; Protocol Last Admin: 04/11/18 09:27 Dose: 200 mls/hr Metronidazole (Flagyl) 500 mg in 100 mls @ 100 mls/hr IVPB Q8H [facility]; Protocol Last Admin: 04/11/18 12:58 Dose: 100 mls/hr Sodium Chloride (Sodium Chloride 0.9%) 1,000 mls @ 100 mls/hr IV .Q10H [facility] Last Admin: 04/11/18 13:43 Dose: Not Given Influenza Virus Vaccine (Fluzone Quad [id number]) 60 mcg IM .ONCE ONE Stop: 04/13/18 10:01 Ketorolac Tromethamine (Toradol) 15 mg IVP Q6 PRN PRN Reason: Pain, moderate (4-7) Last Admin: 04/11/18 04:24 Dose: 15 mg Pantoprazole Sodium (Protonix Inj) 40 mg IVP DAILY [facility] Last Admin: 04/11/18 09:27 Dose: 40 mg Pneumococcal Polyvalent Vaccine (Pneumovax 23 Vaccine) 0.5 ml IM .ONCE ONE Stop: 04/13/18 10:01 Results - Vital Signs Recent Vital Signs: Last Vital Signs Temp 98.6 F 04/11/18 07:52 Pulse 64 04/11/18 07:52 Resp 20 04/11/18 07:52 BP 133/92 H 04/11/18 07:52 Pulse Ox 96 04/11/18 13:41 - Labs Result Diagrams: 04/11/18 11:26 04/11/18 11:26 Labs: Laboratory Results - last 24 hr 04/10/18 04/10/18 04/10/18 13:52 14:42 14:44 WBC 5.6 RBC 4.76 Hgb 14.4 Hct 41.9 MCV 88.1 MCH 30.2 MCHC 34.3 RDW 13.1 Plt Count 188 MPV 9.9 Neut % (Auto) 57.1 Lymph % (Auto) 31.6 Creek % (Auto) 8.5 Eos % (Auto) 2.0 Baso % (Auto) 0.8 Neut # (Auto) 3.2 Lymph # (Auto) 1.8 Creek # (Auto) 0.5 Eos # (Auto) 0.1 Baso # (Auto) 0.0 Sodium 143 Potassium 4.0 Chloride 106 Carbon Dioxide 23 Anion Gap 18 BUN 12 Creatinine 0.8 Est GFR ( Amer) > 60 Est GFR (Non-Af Amer) > 60 Random Glucose 83 Lactic Acid Calcium 9.6 Total Bilirubin 0.6 AST 24 ALT 27 Alkaline Phosphatase 126 Total Protein 8.2 Albumin 4.2 Globulin 4.0 H Albumin/Globulin Ratio 1.1 Lipase 131 Urine Color Straw Urine Clarity Clear Urine pH 6.0 Ur Specific [place] 1.006 Urine Protein Negative Urine Glucose (UA) Normal Urine Ketones Negative Urine Blood Negative Urine Nitrate Negative Urine Bilirubin Negative Urine Urobilinogen Normal Ur Leukocyte Esterase Neg Urine WBC (Auto) 1 Urine RBC (Auto) < 1 Ur Squamous Epith Cells 2 04/10/18 04/11/18 04/11/18 14:44 11:26 11:26 WBC 4.4 L RBC 4.57 Hgb 13.5 Hct 39.6 MCV 86.8 MCH 29.5 MCHC 34.0 RDW 13.4 Plt Count 211 MPV 9.5 Neut % (Auto) 55.3 Lymph % (Auto) 35.1 Creek % (Auto) 6.5 Eos % (Auto) 2.4 Baso % (Auto) 0.7 Neut # (Auto) 2.4 Lymph # (Auto) 1.5 Creek # (Auto) 0.3 Eos # (Auto) 0.1 Baso # (Auto) 0.0 Sodium 142 Potassium 4.3 Chloride 107 Carbon Dioxide 23 Anion Gap 16 BUN 9 Creatinine 0.7 Est GFR ( Amer) > 60 Est GFR (Non-Af Amer) > 60 Random Glucose 101 Lactic Acid 1.3 Calcium 9.4 Total Bilirubin 0.8 AST 25 ALT 26 Alkaline Phosphatase 130 H Total Protein 8.0 Albumin 4.2 Globulin 3.9 Albumin/Globulin Ratio 1.1 Lipase Urine Color Urine Clarity Urine pH Ur Specific [place] Urine Protein Urine Glucose (UA) Urine Ketones Urine Blood Urine Nitrate Urine Bilirubin Urine Urobilinogen Ur Leukocyte Esterase Urine WBC (Auto) Urine RBC (Auto) Ur Squamous Epith Cells
--- NOTE | 2018-04-11 22:17 | CON ---
DATE: 04/11/2018 INFECTIOUS DISEASE CONSULTATION REQUESTED BY: Saman Neely DO HISTORY OF PRESENT ILLNESS: This patient is a 52-year-old Afro-[place] female. She has a history of hypertension and history of colon cancer. She had a resection in 2014. She has a history of colitis. She also says she has a history of a ureteral stricture. She was following with a urologist three years ago. Now comes with a UTI. She said she was having urinary symptoms and foul-smelling urine, and she was prescribed Cipro by the physician, and then the PMD called her that the urine cultures grew E. Coli and it was resistant to Cipro and Bactrim, and she was told to go to the emergency room. She also says for the past six months she is also having right-sided pain, and it radiates to the left. The pain is constant. She has had foul-smelling urine back and forth. She admits to urinary incontinence also, and she was having increased frequency. She denied any dysuria, but there was foul smell. She has been having lower abdominal pain for few days. She also admits to having fever of 101. ALLERGIES: SHE IS ALLERGIC TO PENICILLIN. SHE SAYS PENICILLIN GIVES HER EXTREME RASH AND MAY HAVE CLOSED THE THROAT, SO SHE HAS EXTREME ALLERGY TO PENICILLIN. Her doctor is . MEDICATIONS: She is on lisinopril 5 mg. MEDICAL HISTORY: Significant for hypertension; kidney stones; colon cancer, status post resection; and colitis. SURGICAL HISTORY: Significant for hysterectomy. She had a partial colon resection in 2014. Had appendicectomy and has had C-sections x3. SOCIAL HISTORY: Negative for smoking. She drinks alcohol occasionally. 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 FAMILY HISTORY: Mother has hypertension and diabetes. Father has hypertension, CVA at age 70. She is sexually active did say that she had some procedure done by the urologist which made me feel as if she had urethral abnormalities and may need a followup from a urologist. REVIEW OF SYSTEM: Past medical history, she never smoked. Hypertension. She has a history of colon cancer, history of colitis. History of urinary tract infection in the past. History of kidney stones. History of substance. There is no psych history. She had surgical history for appendicectomy and no anesthesia. She has had allergies to penicillin. PHYSICAL EXAMINATION: VITAL SIGNS: Temperature is 97.6, pulse is 65, blood pressure is 123/82, respirations are 20. HEENT: Head is atraumatic, normocephalic. Pupils are reacting to light. NECK: Supple. JVP is flat. Tongue is moist, at this time she is on IV fluids. LUNGS: Clear to auscultation. HEART: S1 and S2 are regular. BACK: There is no CVA tenderness at this time. ABDOMEN: Soft, nontender. No guarding, no rigidity present. EXTREMITIES: Have no edema, clubbing, or cyanosis. LABORATORY DATA: Show white count of 4.4 today, hemoglobin 13.5, hematocrit 39.6, platelet count is 211. She came with a white count of 5.6. Sodium is 142, potassium 4.3, chlorides are 107, CO2 is 23, BUN is 9, creatinine 0.7. Alkaline phosphatase is 130. UA has bacteria moderate. Urine culture came out gram-negative rods on 04/10/2018. Blood culture x2 are negative. ASSESSMENT AND PLAN: At this time, I do not have the identification and sensitivity, she is afebrile, and her white count is okay, so we will wait for the urine culture report at this time. She had other tests done which showed no acute findings. I identified incidental findings as above, let me see what it says. The bowel looks within the normal caliber without evidence of intestinal obstruction, anastomotic bowel suture material, descending colon, she has a splenic flexure. No significant free fluid. No atherosclerotic calcifications. Small sac containing umbilical hernia. She has a contracted gallbladder. I want to see the kidney. There is limited exam. Kidney, no hydronephrosis or obstructive renal stones. So at this time, it seems like she has urinary tract infection, and she also has history of colitis. Her medications, she is on Tylenol. She is on Azactam 2 g every 8 hours. She is on Lovenox, Robitussin, and Toradol. She is also on Flagyl at this time, Protonix, Pneumovax which they planned to give. She is on intravenous fluids. They should give IV fluids to continue to treat her. We will follow. At this time, I am waiting for the urine culture report. I did look up her phone. She had a report of Escherichia coli, but the sensitivities were not there, and since there is another culture which will be ready tomorrow. I will follow that. Juliann Dunbar MD
[2018-04-12] MEDS: Aztreonam 2 GM in Sodium Chloride 0.9% 100 ML IVPB SCH ×3 (00:45→18:04)
[2018-04-12] MEDS: Sodium Chloride 0.9% 1,000 ML IV SCH ×4 (00:46→20:30)
[2018-04-12] MEDS: metroNIDAZOLE IV 500 mg/100 ml 500 MG/100 ML BAG IVPB SCH ×3 (04:21→21:15)
[2018-04-12 06:37] LABS: BASO % 0.6 % (0.0-2.0); EOS # 0.1 K/uL (0.0-0.7); EOS % 2.4 % (0.0-4.0); HEMOGLOBIN 13.1 g/dL (11.0-16.0); LYMPH # 1.7 K/uL (1.0-4.3); LYMPH % 37.5 % (20.0-40.0); MEAN CORPUSCULAR HEMOGLOBIN 29.9 pg (27.0-31.0); MEAN CORPUSCULAR HGB CONC 34.7 g/dL (33.0-37.0); MEAN PLATELET VOLUME 9.2 fL (7.2-11.7); MONO # 0.4 K/uL (0.0-0.8); MONO % 7.9 % (0.0-10.0); NEUT # 2.4 K/uL (1.8-7.0); NEUT % 51.6 % (50.0-75.0); RBC 4.4 Mil/uL (3.80-5.20); RED CELL DISTRIBUTION WIDTH 12.8 % (11.5-14.5); WHITE BLOOD COUNT 4.6 K/uL (4.8-10.8)
[2018-04-12 06:50] LABS: ALB/GLOB RATIO 1.1 (1.0-2.1); ALBUMIN 3.8 g/dL (3.5-5.0); ALT/SGPT 28 U/L (9-52); AST/SGOT 22 U/L (14-36); BLOOD UREA NITROGEN 7 mg/dL (7-17); CALCIUM 9.3 mg/dl (8.6-10.4); GFR NON-AFRICAN AMERICAN > 60
--- NOTE | 2018-04-12 07:24 | CP.PCM.PN ---
Subjective - Date & Time of Evaluation Date of Evaluation: 04/12/18 Time of Evaluation: 07:25 - Subjective Subjective: PGY1 Medicine Progress Note for Dr. Cerda. Patient seen and examined at bedside. Patient still continues to have mild back pain that is improving. Patient states she is urinating well. Pt denies fevers, chills, chest pain, sob, n/v/d, hematuria, vaginal discharge, hematochezia, melena. Pt has not had a bowel movement today. Objective - Vital Signs/Intake and Output Vital Signs (last 24 hours): Temp Pulse Resp BP Pulse Ox 97.4 F L 65 20 130/83 98 04/11/18 23:49 04/11/18 23:49 04/11/18 23:49 04/11/18 23:49 04/12/18 00:00 Intake and Output: 04/12/18 04/12/18 06:59 18:59 Intake Total 1300 Balance 1300 - Medications Medications: Current Medications Acetaminophen (Tylenol 325mg Tab) 650 mg PO Q6 PRN PRN Reason: Fever >100.4 F Enoxaparin Sodium (Lovenox) 40 mg SC DAILY [facility] Last Admin: 04/11/18 09:27 Dose: 40 mg Guaifenesin (Robitussin) 100 mg PO Q4H PRN PRN Reason: Cough Last Admin: 04/11/18 11:03 Dose: 100 mg Aztreonam 2 gm/ Sodium (Chloride) 100 mls @ 200 mls/hr IVPB Q8H [facility]; Protocol Last Admin: 04/12/18 00:45 Dose: 200 mls/hr Metronidazole (Flagyl) 500 mg in 100 mls @ 100 mls/hr IVPB Q8H [facility]; Protocol Last Admin: 04/12/18 04:21 Dose: 100 mls/hr Sodium Chloride (Sodium Chloride 0.9%) 1,000 mls @ 100 mls/hr IV .Q10H [facility] Last Admin: 04/12/18 00:46 Dose: 100 mls/hr Influenza Virus Vaccine (Fluzone Quad [id number]) 60 mcg IM .ONCE ONE Stop: 04/13/18 10:01 Ketorolac Tromethamine (Toradol) 15 mg IVP Q6 PRN PRN Reason: Pain, moderate (4-7) Last Admin: 04/12/18 00:03 Dose: 15 mg Pantoprazole Sodium (Protonix Inj) 40 mg IVP DAILY [facility] Last Admin: 04/11/18 09:27 Dose: 40 mg Pneumococcal Polyvalent Vaccine (Pneumovax 23 Vaccine) 0.5 ml IM .ONCE ONE Stop: 04/13/18 10:01 - Labs Labs: 04/12/18 06:25 04/12/18 06:25 - Constitutional Appears: Non-toxic, No Acute Distress - Head Exam Head Exam: ATRAUMATIC, NORMAL INSPECTION, NORMOCEPHALIC - Eye Exam Eye Exam: EOMI, Normal appearance Pupil Exam: NORMAL ACCOMODATION - ENT Exam ENT Exam: Mucous Membranes Moist - Respiratory Exam Respiratory Exam: Clear to Ausculation Bilateral, NORMAL BREATHING PATTERN. absent: Rales, Rhonchi, Wheezes - Cardiovascular Exam Cardiovascular Exam: +S1, +S2 - GI/Abdominal Exam GI & Abdominal Exam: Soft, Normal Bowel Sounds. absent: Guarding, Rigid, Tenderness - Back Exam Back Exam: CVA tenderness (L), CVA tenderness (R) Additional comments: R> L - Neurological Exam Neurological Exam: Alert, Awake, Oriented x3 - Psychiatric Exam Psychiatric exam: Normal Affect, Normal Mood - Skin Skin Exam: Dry, Intact, Normal Color, Warm Assessment and Plan - Assessment and Plan (Free Text) Assessment: Patient is a 52 year old female with past medical history of hypertension, colon cancer s/p partial colon resection who was sent to the emergency department for urinary tract infection resistant to multiple antibiotics. Patient complaining of right sided low back pain, lower abdominal pain and diarrhea x 2 days with fever. UTI -afebrile, not tachycardic, no leukocytosis -Abdominal/Pelvic CT with PO contrast shows no acute changes. (see full report) -Urine culture 04/06/18 grew E coli resistent to Bactrim, Ciprofloxacin, Ampicillin -UA on admission +nitrates, +squamous epithelial cells, moderate bacteria -Urine culture prelim shows greater than gram negative khadra 100,000 cfu/mL -Antibiotics: Metronidazole 500 mg Q8H for anaerobic coverage, Aztreonam 2gm Q8H IVPB for gram negative coverage -Toradol 15mg Q6H prn, Tylenol 650mg Q6H prn fever -Infectious disease consulted, Dr. Dunbar - Due to KELLIE & abx coverage, ID recomending aztreonam 1g Q8 for 12 additional days (through 04/24) - PICC line order placed 04/12, & will need consent, Attempted consent, but patient requested more time to think about. - will speak with case for infusion placement Diarrhea Colitis, previous Hx -no bouts of diarrhea today -lipase is normal as noted above -F/U stool cultures, fecal leukocytes, lactoferrin, ova/parasites, c diff, fecal fat -flagyl 500 mg Q8H Upper respiratory tract infection -Patient with non-productive cough, which has resolved since admission and treatment -continue Robitussin 100mg Q4H prn cough -CXR shows no active disease Low Back pain -Lumbar Xray 01/2018 showed probable L5-S1 disc space narrowing -mild, no compression fractures (see full report) -Toradol 15mg Q6H prn pain History of Hypertension -Patient is on Lisinopril 5mg PO daily at home -Will monitor at this time Colon cancer s/p partial colon resection -Last colonoscopy was btw end of 2016-beginning of 2017, patient states it was normal PPX/Diet -Protonix 40mg IVP daily for GI ppx -Lovenox 40mg SC daily for VTE ppx -HHD Dispo: Spoke with ID Dr. Dunbar. Due to KELLIE & abx coverage, ID recomending aztreonam 1g Q8 for 12 additional days (through 04/24). PICC line order placed 04/12, & will need consent. Attempted consent, but patient requested more time to think about. D/w Dr. Zaida Asencio PGY1
[2018-04-12] MEDS: Enoxaparin 40 mg Syringe SC SCH (10:19)
[2018-04-12] MEDS: guaiFENesin 100 mg/5 ml Syrup UD PO PRN (10:28)
[2018-04-12 21:36] LABS: C DIFF TOXIN A B NEGATIVE (NEGATIVE)
--- NOTE | 2018-04-12 21:55 | CP.PCM.PN ---
Subjective - Date & Time of Evaluation Date of Evaluation: 04/12/18 Time of Evaluation: 15:15 - Subjective Subjective: dictated Objective - Vital Signs/Intake and Output Vital Signs (last 24 hours): Temp Pulse Resp BP Pulse Ox 98.4 F 63 20 121/83 97 04/12/18 16:20 04/12/18 16:20 04/12/18 16:20 04/12/18 16:20 04/12/18 16:20 Intake and Output: 04/12/18 04/13/18 18:59 06:59 Intake Total 800 Balance 800 - Medications Medications: Current Medications Acetaminophen (Tylenol 325mg Tab) 650 mg PO Q6 PRN PRN Reason: Fever >100.4 F Enoxaparin Sodium (Lovenox) 40 mg SC DAILY [facility] Last Admin: 04/12/18 10:19 Dose: Not Given Guaifenesin (Robitussin) 100 mg PO Q4H PRN PRN Reason: Cough Last Admin: 04/12/18 10:28 Dose: 100 mg Aztreonam 2 gm/ Sodium (Chloride) 100 mls @ 200 mls/hr IVPB Q8H [facility]; Protocol Last Admin: 04/12/18 18:04 Dose: 200 mls/hr Metronidazole (Flagyl) 500 mg in 100 mls @ 100 mls/hr IVPB Q8H [facility]; Protocol Last Admin: 04/12/18 21:15 Dose: 100 mls/hr Sodium Chloride (Sodium Chloride 0.9%) 1,000 mls @ 100 mls/hr IV .Q10H [facility] Last Admin: 04/12/18 18:09 Dose: 100 mls/hr Influenza Virus Vaccine (Fluzone Quad [id number]) 60 mcg IM .ONCE ONE Stop: 04/13/18 10:01 Ketorolac Tromethamine (Toradol) 15 mg IVP Q6 PRN PRN Reason: Pain, moderate (4-7) Last Admin: 04/12/18 00:03 Dose: 15 mg Pantoprazole Sodium (Protonix Inj) 40 mg IVP DAILY [facility] Last Admin: 04/12/18 10:19 Dose: 40 mg Pneumococcal Polyvalent Vaccine (Pneumovax 23 Vaccine) 0.5 ml IM .ONCE ONE Stop: 04/13/18 10:01 - Labs Labs: 04/12/18 06:25 04/12/18 06:25
[2018-04-12 22:15] LABS: FECAL LEUKOCYTES NEGATIVE (NEGATIVE)
[2018-04-13] MEDS: Aztreonam 2 GM in Sodium Chloride 0.9% 100 ML IVPB SCH ×3 (02:13→17:18)
[2018-04-13] MEDS: metroNIDAZOLE IV 500 mg/100 ml 500 MG/100 ML BAG IVPB SCH ×3 (04:05→21:10)
[2018-04-13] MEDS: Sodium Chloride 0.9% 1,000 ML IV SCH ×3 (06:22→21:13)
[2018-04-13 08:03] LABS: BASO % 0.6 % (0.0-2.0); EOS # 0.1 K/uL (0.0-0.7); EOS % 2.4 % (0.0-4.0); HEMOGLOBIN 13.4 g/dL (11.0-16.0); LYMPH % 37.9 % (20.0-40.0); MEAN CELL VOLUME 86.8 fL (81.0-99.0); MEAN CORPUSCULAR HEMOGLOBIN 30.1 pg (27.0-31.0); MEAN CORPUSCULAR HGB CONC 34.7 g/dL (33.0-37.0); MEAN PLATELET VOLUME 9.6 fL (7.2-11.7); MONO # 0.3 K/uL (0.0-0.8); MONO % 6.3 % (0.0-10.0); NEUT # 2.8 K/uL (1.8-7.0); NEUT % 52.8 % (50.0-75.0); NRBC % 0.1 % (0.0-2.0); RBC 4.46 Mil/uL (3.80-5.20); RED CELL DISTRIBUTION WIDTH 13.1 % (11.5-14.5); WHITE BLOOD COUNT 5.2 K/uL (4.8-10.8)
[2018-04-13 08:35] LABS: ALB/GLOB RATIO 1.1 (1.0-2.1); ALBUMIN 4.1 g/dL (3.5-5.0); ALT/SGPT 42 U/L (9-52); AST/SGOT 47 U/L (14-36); BLOOD UREA NITROGEN 9 mg/dL (7-17); CALCIUM 9.5 mg/dl (8.6-10.4); GFR NON-AFRICAN AMERICAN > 60
--- NOTE | 2018-04-13 09:22 | CP.PCM.PN ---
<Boby Childress - Last Filed: 04/13/18 15:02> Subjective - Date & Time of Evaluation Date of Evaluation: 04/13/18 Time of Evaluation: 09:19 - Subjective Subjective: PGY1 Medicine Progress Note for Dr. Cerda. Patient seen and examined at bedside. No acute events overnight. Pt reports that she still have a cough, productive of clear sputum. Pt reports mild back pain, which has been gradually improving. Pt denies fevers, chills, chest pain, sob, n/v/d, hematuria, vaginal discharge, hematochezia, melena, dysuria. Pt is eating well, and ambulating without difficulties. Pt states that she has two soft bowel movements yesterday, but denies any nonformed bowel movements. Objective - Vital Signs/Intake and Output Vital Signs (last 24 hours): Temp Pulse Resp BP Pulse Ox 97.6 F 62 20 143/90 98 04/13/18 08:00 04/13/18 08:00 04/13/18 08:00 04/13/18 08:00 04/13/18 08:00 Intake and Output: 04/13/18 04/13/18 06:59 18:59 Intake Total 1840 Balance 1840 - Medications Medications: Current Medications Acetaminophen (Tylenol 325mg Tab) 650 mg PO Q6 PRN PRN Reason: Fever >100.4 F Enoxaparin Sodium (Lovenox) 40 mg SC DAILY [facility] Last Admin: 04/12/18 10:19 Dose: Not Given Guaifenesin (Robitussin) 100 mg PO Q4H PRN PRN Reason: Cough Last Admin: 04/12/18 10:28 Dose: 100 mg Aztreonam 2 gm/ Sodium (Chloride) 100 mls @ 200 mls/hr IVPB Q8H [facility]; Protocol Last Admin: 04/13/18 02:13 Dose: 200 mls/hr Metronidazole (Flagyl) 500 mg in 100 mls @ 100 mls/hr IVPB Q8H [facility]; Protocol Last Admin: 04/13/18 04:05 Dose: 100 mls/hr Sodium Chloride (Sodium Chloride 0.9%) 1,000 mls @ 100 mls/hr IV .Q10H [facility] Last Admin: 04/13/18 06:22 Dose: Not Given Influenza Virus Vaccine (Fluzone Quad [id number]) 60 mcg IM .ONCE ONE Stop: 04/13/18 10:01 Pantoprazole Sodium (Protonix Inj) 40 mg IVP DAILY [facility] Last Admin: 04/12/18 10:19 Dose: 40 mg Pneumococcal Polyvalent Vaccine (Pneumovax 23 Vaccine) 0.5 ml IM .ONCE ONE Stop: 04/13/18 10:01 - Labs Labs: 04/13/18 07:55 04/13/18 07:55 - Constitutional Appears: Non-toxic, No Acute Distress - Head Exam Head Exam: NORMAL INSPECTION - Eye Exam Eye Exam: EOMI, Normal appearance - ENT Exam ENT Exam: Mucous Membranes Moist - Respiratory Exam Respiratory Exam: Clear to Ausculation Bilateral. absent: Rales, Rhonchi, Wheezes, Respiratory Distress - Cardiovascular Exam Cardiovascular Exam: REGULAR RHYTHM, +S1, +S2 - GI/Abdominal Exam GI & Abdominal Exam: Soft, Tenderness (mild diffuse abdominal tenderness), Normal Bowel Sounds - Extremities Exam Extremities Exam: Normal Capillary Refill, Normal Inspection. absent: Pedal Edema, Tenderness - Back Exam Back Exam: CVA tenderness (R) (mild ), NORMAL INSPECTION. absent: CVA tenderness (L) - Neurological Exam Neurological Exam: Alert, Awake - Psychiatric Exam Psychiatric exam: Normal Affect, Normal Mood - Skin Skin Exam: Dry, Normal Color, Warm Assessment and Plan - Assessment and Plan (Free Text) Assessment: Patient is a 52 year old female with past medical history of hypertension, colon cancer s/p partial colon resection who was sent to the emergency department for urinary tract infection resistant to multiple antibiotics. Patient complaining of right sided low back pain, lower abdominal pain and diarrhea x 2 days with fever. UTI -afebrile, not tachycardic, no leukocytosis -Abdominal/Pelvic CT with PO contrast shows no acute changes. (see full report) -Urine culture 04/06/18 grew E coli resistent to Bactrim, Ciprofloxacin, Ampicillin -UA on admission +nitrates, +squamous epithelial cells, moderate bacteria -Urine culture prelim shows greater than gram negative khadra 100,000 cfu/mL -Antibiotics: Metronidazole 500 mg Q8H for anaerobic coverage, Aztreonam 2gm Q8H IVPB for gram negative coverage -Toradol 15mg Q6H prn, Tylenol 650mg Q6H prn fever -Infectious disease consulted, Dr. Dunbar - Due to KELLIE & abx coverage, ID recommending aztreonam 2g Q8 for 12 additional days (through 04/24) - PICC line order placed 04/12, attempted consent, but patient requested more time to think about. -pt has decided to not have a PICC line inserted because she is afraid that it will get infected if she goes home -I explained to the pt that although this may happen, it is also possible to be infected while in the hospital, and with drug resistant microbes. Pt is adamant that she does not want the PICC line. - will speak with case for infusion placement Diarrhea Colitis, previous Hx -no episode of diarrhea -describes soft bowel movements -lipase is normal as noted above -cdiff is negative, fecal leukocytes are not present -f/u ova and parasite, fecal fat, lactoferrin -flagyl 500 mg Q8H Upper respiratory tract infection -Patient with cough productive of clear sputum, which is alleviated by Robitussin -continue Robitussin 100mg Q4H prn cough -CXR shows no active disease Low Back pain -Lumbar Xray 01/2018 showed probable L5-S1 disc space narrowing -mild, no compression fractures (see full report) -Toradol 15mg Q6H prn pain History of Hypertension -normotensive during hospital stay -Patient is on Lisinopril 5mg PO daily at home -continue to monitor Colon cancer s/p partial colon resection -Last colonoscopy was btw end of 2016-beginning of 2017, patient states it was normal PPX/Diet -Protonix 40mg IVP daily for GI ppx -Lovenox 40mg SC daily for VTE ppx -Lactobacillus for GI ppx -HHD Dispo: ID recommending Aztreonam 1g Q8 for 12 additional days (through 04/24). Pt does not want a PICC line, and antibiotics will continue to be given through peripheral line. Case was discussed with attending physician, Dr. Zaida Childress PGY-1 <Raman Cerda - Last Filed: 04/13/18 18:07> Objective - Vital Signs/Intake and Output Vital Signs (last 24 hours): Temp Pulse Resp BP Pulse Ox 98.2 F 68 20 124/76 97 04/13/18 16:00 04/13/18 16:00 04/13/18 16:00 04/13/18 16:00 04/13/18 16:00 Intake and Output: 04/13/18 04/13/18 06:59 18:59 Intake Total 1840 1400 Balance 1840 1400 - Medications Medications: Current Medications Acetaminophen (Tylenol 325mg Tab) 650 mg PO Q6 PRN PRN Reason: Fever >100.4 F Enoxaparin Sodium (Lovenox) 40 mg SC DAILY [facility] Last Admin: 04/13/18 10:27 Dose: Not Given Guaifenesin (Robitussin) 100 mg PO Q4H PRN PRN Reason: Cough Last Admin: 04/12/18 10:28 Dose: 100 mg Aztreonam 2 gm/ Sodium (Chloride) 100 mls @ 200 mls/hr IVPB Q8H [facility]; Protocol Last Admin: 04/13/18 17:18 Dose: 200 mls/hr Metronidazole (Flagyl) 500 mg in 100 mls @ 100 mls/hr IVPB Q8H [facility]; Protocol Last Admin: 04/13/18 12:05 Dose: 100 mls/hr Sodium Chloride (Sodium Chloride 0.9%) 1,000 mls @ 100 mls/hr IV .Q10H [facility] Last Admin: 04/13/18 09:36 Dose: 100 mls/hr Lactobacillus Acidophilus (Bacid Acidophilus) 1 cap PO BID [facility] Last Admin: 04/13/18 17:19 Dose: 1 cap Pantoprazole Sodium (Protonix Inj) 40 mg IVP DAILY [facility] Last Admin: 04/13/18 10:26 Dose: 40 mg - Labs Labs: 04/13/18 07:55 04/13/18 07:55 Attending/Attestation - Attestation I have personally seen and examined this patient.: Yes I have fully participated in the care of the patient.: Yes I have reviewed all pertinent clinical information, including history, physical exam and plan: Yes Notes (Text): 04/13/18 18:06 Medical attending: Patient was seen and examined by me, patient was seen with the medical assisting program director. I reviewed the above note by the resident and agree with the above note. The patient continues to be on the IV aztreonam as well as the IV Flagyl. He was recommended to us that the patient have a PICC line since she will need at least 12 days total of the IV aztreonam however the patient was nervous about the PICC line yesterday in the afternoon and declined to get a PICC line. Currently we have a smaller peripheral IV in her arm. It's running findings will continue with the peripheral IV. As mentioned previously were treating the patient for Escherichia coli UTI that is resistant to Cipro and the patient has strong allergies to penicillin. There fore were giving her the IV aztreonam. She says that she has much less back pain much less abdominal pain than previously. Thank you very much, the patient will probably be here until next week. Raman Cerda
[2018-04-13] MEDS ORDERED: Pneumococcal 23-Valent Vaccine IM ONE ×2 (10:00)
[2018-04-13] MEDS ORDERED: Influenza Vaccine 60 MCG/0.5 ML SYR (3 yr & up) IM ONE ×2 (10:00→10:15)
[2018-04-13] MEDS: Enoxaparin 40 mg Syringe SC SCH (10:27)
[2018-04-13] MEDS: Lactobacillus Acidophilus 500 MU Cap PO SCH (17:19)
--- NOTE | 2018-04-13 20:12 | CP.PCM.PN ---
Subjective - Date & Time of Evaluation Date of Evaluation: 04/13/18 Time of Evaluation: 16:15 - Subjective Subjective: dictated Objective - Vital Signs/Intake and Output Vital Signs (last 24 hours): Temp Pulse Resp BP Pulse Ox 98.2 F 68 20 124/76 97 04/13/18 16:00 04/13/18 16:00 04/13/18 16:00 04/13/18 16:00 04/13/18 16:00 Intake and Output: 04/13/18 04/14/18 18:59 06:59 Intake Total 1400 Balance 1400 - Medications Medications: Current Medications Acetaminophen (Tylenol 325mg Tab) 650 mg PO Q6 PRN PRN Reason: Fever >100.4 F Last Admin: 04/13/18 19:00 Dose: 650 mg Enoxaparin Sodium (Lovenox) 40 mg SC DAILY [facility] Last Admin: 04/13/18 10:27 Dose: Not Given Guaifenesin (Robitussin) 100 mg PO Q4H PRN PRN Reason: Cough Last Admin: 04/12/18 10:28 Dose: 100 mg Aztreonam 2 gm/ Sodium (Chloride) 100 mls @ 200 mls/hr IVPB Q8H [facility]; Protocol Last Admin: 04/13/18 17:18 Dose: 200 mls/hr Metronidazole (Flagyl) 500 mg in 100 mls @ 100 mls/hr IVPB Q8H [facility]; Protocol Last Admin: 04/13/18 12:05 Dose: 100 mls/hr Sodium Chloride (Sodium Chloride 0.9%) 1,000 mls @ 100 mls/hr IV .Q10H [facility] Last Admin: 04/13/18 09:36 Dose: 100 mls/hr Lactobacillus Acidophilus (Bacid Acidophilus) 1 cap PO BID [facility] Last Admin: 04/13/18 17:19 Dose: 1 cap Pantoprazole Sodium (Protonix Inj) 40 mg IVP DAILY [facility] Last Admin: 04/13/18 10:26 Dose: 40 mg - Labs Labs: 04/13/18 07:55 04/13/18 07:55
--- NOTE | 2018-04-13 20:27 | PN ---
DATE: 04/12/2018 SUBJECTIVE: The patient is feeling little better, still has back pain. She is urinating. No fever, no chest pain, no shortness of breath, no abdominal pain, but she still has a right flank pain, and she also said that she gave the stool for testing today as she did feel her stomach rumbling before. ALLERGIES: THE PATIENT IS ALLERGIC TO PENICILLIN. SHE SAID SHE GETS VERY SEVERE RASH, BUT SHE HAS BEEN TOLERATING AZACTAM. PHYSICAL EXAMINATION VITAL SIGNS: T-max is 97.4 today and she is afebrile, pulse is 63, blood pressure 121/83, respirations are 20. HEENT: Head is atraumatic, normocephalic. Pupils are reacting to light. NECK: Supple. JVP is flat. LUNGS: Clear. HEART: S1, S2 is regular. ABDOMEN: Soft, nontender. Right flank mild tenderness. She points to her right flank. Abdomen is soft, nontender. EXTREMITIES: Have no edema. LABORATORY DATA: The labs came back. Micro shows that there is a urine culture which has E. coli. This E. coli is very sensitive except it is intermediate to ampicillin and to Cipro it is resistant, and resistant to Bactrim. Urine culture, one was negative and one was positive. ASSESSMENT AND PLAN: At this time, I think since clinically it looks like she has pyelonephritis, I would continue Azactam, but decrease the dose to 1 g q.8h. when she goes home, and she is to complete total 14 days from the day we started the Azactam. We need to follow up the stool for Clostridium difficile as it is pending. This patient also has history of colon cancer with resection. Clostridium difficile antigen came out negative, so we will continue with Azactam, and give her Bacid. I discussed the plan with the resident, to see if she can go home with IV antibiotics, to check her labs as outpatient, and we will follow. If she has urinary tract infection with Escherichia coli and has back pain, probably pyelonephritis. Juliann Dunbar MD
--- NOTE | 2018-04-13 21:37 | PN ---
DATE: 04/13/2018 SUBJECTIVE: The patient is afebrile. She says she is feeling little better. She is allergic to penicillin but does seem tolerating Azactam. Denies abdominal pain, but she was bundling herself. She still felt cold and did not offer me much complaints. Still has some back pain which she told that to the intent. She has had a cough now and some clear sputum. We are also looking for her stool studies. PHYSICAL EXAMINATION: HEENT: Head is atraumatic. VITAL SIGNS: Vitals are stable. LUNGS: Clear. HEART: S1 and S2 are regular. ABDOMEN: Soft, nontender. No guarding, no rigidity present. EXTREMITIES: Have no edema. LABORATORY DATA: White count is 5.2, hemoglobin 13.4, hematocrit 38.8, platelet count is 199. Chlorides of 108, so she is slightly dry. Otherwise, the labs show she is tolerating Azactam. We are repeating the urine culture again. We will follow. They are doing stool studies as she has other issues, and she has history of colon cancer in the past. ASSESSMENT AND PLAN: So at this time, I am going to order another urine culture and if it is clearing and since she had a back issue, we will be going to give at least 10 days of Azactam and we will follow. Juliann Dunbar MD
--- NOTE | 2018-04-14 02:03 | CP.PCM.PN ---
<Charles Kumar - Last Filed: 04/14/18 11:00> Subjective - Date & Time of Evaluation Date of Evaluation: 04/14/18 Time of Evaluation: 02:00 - Subjective Subjective: PGY-[address] Raman Cerda Patient is seen and examined at [facility]. Patient complains of sinus pain, headaches and congestion. Patient admits to coughing as well. Patient admits to loose bowels but denies watery stools or blood in the stool. Patient denies back pain. PAtient denies fevers, chills, chest pain, shortness of breath, diarrhea, constipation, nausea or vomiting. Objective - Vital Signs/Intake and Output Vital Signs (last 24 hours): Temp Pulse Resp BP Pulse Ox 97.7 F 68 20 121/74 96 04/13/18 23:51 04/13/18 23:51 04/13/18 23:51 04/13/18 23:51 04/13/18 23:51 Intake and Output: 04/13/18 04/14/18 18:59 06:59 Intake Total 1400 Balance 1400 - Medications Medications: Current Medications Acetaminophen (Tylenol 325mg Tab) 650 mg PO Q6 PRN PRN Reason: Fever >100.4 F Last Admin: 04/13/18 19:00 Dose: 650 mg Enoxaparin Sodium (Lovenox) 40 mg SC DAILY [facility] Last Admin: 04/13/18 10:27 Dose: Not Given Guaifenesin (Robitussin) 100 mg PO Q4H PRN PRN Reason: Cough Last Admin: 04/12/18 10:28 Dose: 100 mg Aztreonam 2 gm/ Sodium (Chloride) 100 mls @ 200 mls/hr IVPB Q8H [facility]; Protocol Last Admin: 04/13/18 17:18 Dose: 200 mls/hr Metronidazole (Flagyl) 500 mg in 100 mls @ 100 mls/hr IVPB Q8H [facility]; Protocol Last Admin: 04/13/18 21:10 Dose: 100 mls/hr Sodium Chloride (Sodium Chloride 0.9%) 1,000 mls @ 100 mls/hr IV .Q10H [facility] Last Admin: 04/13/18 21:13 Dose: 100 mls/hr Lactobacillus Acidophilus (Bacid Acidophilus) 1 cap PO BID [facility] Last Admin: 04/13/18 17:19 Dose: 1 cap Pantoprazole Sodium (Protonix Inj) 40 mg IVP DAILY [facility] Last Admin: 04/13/18 10:26 Dose: 40 mg - Labs Labs: 04/13/18 07:55 04/13/18 07:55 - Constitutional Appears: Non-toxic, No Acute Distress - Head Exam Head Exam: ATRAUMATIC, NORMAL INSPECTION, NORMOCEPHALIC - Eye Exam Eye Exam: EOMI, Normal appearance - ENT Exam ENT Exam: Mucous Membranes Moist, Normal Exam - Neck Exam Neck Exam: Full ROM, Normal Inspection - Respiratory Exam Respiratory Exam: Clear to Ausculation Bilateral, NORMAL BREATHING PATTERN. absent: Accessory Muscle Use, Rales, Rhonchi, Wheezes, Respiratory Distress - Cardiovascular Exam Cardiovascular Exam: REGULAR RHYTHM, +S1, +S2 - GI/Abdominal Exam GI & Abdominal Exam: Soft, Tenderness, Normal Bowel Sounds Additional comments: left lower and right lower quadrant tenderness to palpation. - Extremities Exam Extremities Exam: Full ROM, Normal Inspection. absent: Calf Tenderness, Tenderness - Back Exam Back Exam: Full ROM, NORMAL INSPECTION - Neurological Exam Neurological Exam: Alert, Awake, Oriented x3 - Psychiatric Exam Psychiatric exam: Normal Affect, Normal Mood - Skin Skin Exam: Dry, Intact, Normal Color, Warm Assessment and Plan - Assessment and Plan (Free Text) Plan: UTI -afebrile, not tachycardic, no leukocytosis -Abdominal/Pelvic CT with PO contrast shows no acute changes. (see full report) -Urine culture 04/06/18 grew E coli resistent to Bactrim, Ciprofloxacin, Ampicillin -UA on admission +nitrates, +squamous epithelial cells, moderate bacteria -Urine culture prelim shows greater than gram negative khadra 100,000 cfu/mL -Antibiotics: Metronidazole 500 mg Q8H for anaerobic coverage, Aztreonam 2gm Q8H IVPB for gram negative coverage -Toradol 15mg Q6H prn, Tylenol 650mg Q6H prn fever -Infectious disease consulted, Dr. Dunbar - Due to KELLIE & abx coverage, ID recommending aztreonam 2g Q8 for 12 additional days (through 04/24) - PICC line order placed 04/12, attempted consent, but patient requested more time to think about. -pt has decided to not have a PICC line inserted because she is afraid that it will get infected if she goes home -I explained to the pt that although this may happen, it is also possible to be infected while in the hospital, and with drug resistant microbes. Pt is adamant that she does not want the PICC line. - infusion placement - f/u with housing case manager Diarrhea Colitis, previous Hx -no episode of diarrhea -describes soft bowel movements -lipase is normal as noted above -cdiff is negative, fecal leukocytes are not present -f/u ova and parasite -- negative - fecal fat, lactoferrin -flagyl 500 mg Q8H Upper respiratory tract infection -Patient with cough productive of clear sputum, which is alleviated by Robitussin -continue Robitussin 100mg Q4H prn cough -CXR shows no active disease Low Back pain -Lumbar Xray 01/2018 showed probable L5-S1 disc space narrowing -mild, no compression fractures (see full report) -Toradol 15mg Q6H prn pain History of Hypertension -normotensive during hospital stay -Patient is on Lisinopril 5mg PO daily at home -continue to monitor Colon cancer s/p partial colon resection -Last colonoscopy was btw end of 2016-beginning of 2017, patient states it was normal PPX/Diet -Protonix 40mg IVP daily for GI ppx -Lovenox 40mg SC daily for VTE ppx -Lactobacillus for GI ppx -HHD Dispo: ID recommending Aztreonam 1g Q8 for 12 additional days (through 04/24). Pt does not want a PICC line, and antibiotics will continue to be given through peripheral line. Plan to be discussed with Dr Zaida Kumar, PGY-1 <Raman Cerda H - Last Filed: 04/14/18 11:57> Objective - Vital Signs/Intake and Output Vital Signs (last 24 hours): Temp Pulse Resp BP Pulse Ox 97.6 F 64 20 145/97 H 96 04/14/18 08:12 04/14/18 08:12 04/14/18 08:12 04/14/18 08:12 04/14/18 08:12 Intake and Output: 04/14/18 04/14/18 06:59 18:59 Intake Total 1040 Balance 1040 - Medications Medications: Current Medications Acetaminophen (Tylenol 325mg Tab) 650 mg PO Q6 PRN PRN Reason: Fever >100.4 F Last Admin: 04/13/18 19:00 Dose: 650 mg Enoxaparin Sodium (Lovenox) 40 mg SC DAILY [facility] Last Admin: 04/14/18 09:53 Dose: Not Given Guaifenesin (Robitussin) 100 mg PO Q4H PRN PRN Reason: Cough Last Admin: 04/14/18 10:03 Dose: 100 mg Aztreonam 2 gm/ Sodium (Chloride) 100 mls @ 200 mls/hr IVPB Q8H [facility]; Protocol Last Admin: 04/14/18 09:50 Dose: 200 mls/hr Metronidazole (Flagyl) 500 mg in 100 mls @ 100 mls/hr IVPB Q8H [facility]; Protocol Last Admin: 04/14/18 04:04 Dose: 100 mls/hr Sodium Chloride (Sodium Chloride 0.9%) 1,000 mls @ 100 mls/hr IV .Q10H [facility] Last Admin: 04/14/18 04:14 Dose: Not Given Lactobacillus Acidophilus (Bacid Acidophilus) 1 cap PO BID [facility] Last Admin: 04/14/18 09:50 Dose: 1 cap Pantoprazole Sodium (Protonix Inj) 40 mg IVP DAILY [facility] Last Admin: 04/14/18 09:50 Dose: 40 mg - Labs Labs: 04/14/18 06:55 04/14/18 06:55 Attending/Attestation - Attestation I have personally seen and examined this patient.: Yes I have fully participated in the care of the patient.: Yes I have reviewed all pertinent clinical information, including history, physical exam and plan: Yes Notes (Text): 04/14/18 11:53 Medical attending: Patient was seen and examined by me. Agree with the above note by the resident The patient was not in any acute distress when I came and saw. We are conitnuing with the IV aztreonam as the patient has history of strong allergic reaction to PCN and because of the E coli resistance to fluroquinolone medications. Her BP was somewhat elevated. Currently off of IVF now. Will add back on her home medications Raman Cerda
[2018-04-14] MEDS: Aztreonam 2 GM in Sodium Chloride 0.9% 100 ML IVPB SCH ×3 (02:26→17:19)
[2018-04-14] MEDS: metroNIDAZOLE IV 500 mg/100 ml 500 MG/100 ML BAG IVPB SCH ×3 (04:04→20:10)
[2018-04-14] MEDS: Sodium Chloride 0.9% 1,000 ML IV SCH (04:14)
[2018-04-14 07:07] LABS: BASO % 0.5 % (0.0-2.0); EOS # 0.1 K/uL (0.0-0.7); EOS % 2.5 % (0.0-4.0); HEMOGLOBIN 12.6 g/dL (11.0-16.0); LYMPH # 2.2 K/uL (1.0-4.3); LYMPH % 37.1 % (20.0-40.0); MEAN CELL VOLUME 87.4 fL (81.0-99.0); MEAN CORPUSCULAR HEMOGLOBIN 29.6 pg (27.0-31.0); MEAN CORPUSCULAR HGB CONC 33.8 g/dL (33.0-37.0); MEAN PLATELET VOLUME 9.7 fL (7.2-11.7); MONO # 0.4 K/uL (0.0-0.8); MONO % 7.1 % (0.0-10.0); NEUT # 3.2 K/uL (1.8-7.0); NEUT % 52.8 % (50.0-75.0); RBC 4.27 Mil/uL (3.80-5.20); RED CELL DISTRIBUTION WIDTH 12.7 % (11.5-14.5)
[2018-04-14 07:51] LABS: ALB/GLOB RATIO 1.1 (1.0-2.1); ALBUMIN 3.7 g/dL (3.5-5.0); ALT/SGPT 97 U/L (9-52); AST/SGOT 114 U/L (14-36); BLOOD UREA NITROGEN 11 mg/dL (7-17); CALCIUM 9.2 mg/dl (8.6-10.4); GFR NON-AFRICAN AMERICAN > 60
[2018-04-14] MEDS: Lactobacillus Acidophilus 500 MU Cap PO SCH ×2 (09:50→17:23)
[2018-04-14] MEDS: Enoxaparin 40 mg Syringe SC SCH (09:53)
[2018-04-14] MEDS: guaiFENesin 100 mg/5 ml Syrup UD PO PRN (10:03)
[2018-04-15] MEDS: Aztreonam 2 GM in Sodium Chloride 0.9% 100 ML IVPB SCH ×2 (01:19→09:28)
[2018-04-15] MEDS: metroNIDAZOLE IV 500 mg/100 ml 500 MG/100 ML BAG IVPB SCH ×2 (04:06→13:34)
--- NOTE | 2018-04-15 05:48 | CP.PCM.PN ---
Addendum entered and electronically signed by Bridger Rhoades 04/15/18 14:46: As per phone conversation with ID, Dr. Dunbar (04/15/18): Aztreonam was discontinued due to increasing elevated liver enzymes and patient was switch to Vantin 200mg PO q12h, ID is aware of penicillin allergy. Original Note: Subjective - Date & Time of Evaluation Date of Evaluation: 04/15/18 Time of Evaluation: 05:47 - Subjective Subjective: PGY-[address] Raman Cerda Patient is seen and examined at bedside. Patient was sleeping at time of encounter. Patient reports no acute events and currently has no complains. Eneida ent states her sinus congestion is better. Patient denies fevers, chills, shortness of breath, chest pain, nausea, vomiting, diarrhea or constipation. Objective - Vital Signs/Intake and Output Vital Signs (last 24 hours): Temp Pulse Resp BP Pulse Ox 98.1 F 71 16 119/72 98 04/15/18 01:00 04/15/18 01:00 04/15/18 01:00 04/15/18 01:00 04/15/18 01:00 Intake and Output: 04/14/18 04/15/18 18:59 06:59 Intake Total 1100 700 Balance 1100 700 - Medications Medications: Current Medications Acetaminophen (Tylenol 325mg Tab) 650 mg PO Q6 PRN PRN Reason: Fever >100.4 F Last Admin: 04/13/18 19:00 Dose: 650 mg Enoxaparin Sodium (Lovenox) 40 mg SC DAILY [facility] Last Admin: 04/14/18 09:53 Dose: Not Given Guaifenesin (Robitussin) 100 mg PO Q4H PRN PRN Reason: Cough Last Admin: 04/14/18 10:03 Dose: 100 mg Aztreonam 2 gm/ Sodium (Chloride) 100 mls @ 200 mls/hr IVPB Q8H [facility]; Protocol Last Admin: 04/15/18 01:19 Dose: 200 mls/hr Metronidazole (Flagyl) 500 mg in 100 mls @ 100 mls/hr IVPB Q8H [facility]; Protocol Last Admin: 04/15/18 04:06 Dose: 100 mls/hr Lactobacillus Acidophilus (Bacid Acidophilus) 1 cap PO BID [facility] Last Admin: 04/14/18 17:23 Dose: 1 cap Lisinopril (Zestril) 10 mg PO DAILY [facility] Last Admin: 04/14/18 12:48 Dose: 10 mg Pantoprazole Sodium (Protonix Inj) 40 mg IVP DAILY [facility] Last Admin: 04/14/18 09:50 Dose: 40 mg - Labs Labs: 04/14/18 06:55 04/14/18 06:55 - Constitutional Appears: Well, Non-toxic, No Acute Distress - Head Exam Head Exam: ATRAUMATIC, NORMAL INSPECTION, NORMOCEPHALIC - Eye Exam Eye Exam: EOMI, Normal appearance - ENT Exam ENT Exam: Normal Exam - Neck Exam Neck Exam: Full ROM, Normal Inspection - Respiratory Exam Respiratory Exam: Clear to Ausculation Bilateral, NORMAL BREATHING PATTERN. absent: Accessory Muscle Use, Rhonchi, Wheezes, Respiratory Distress - Cardiovascular Exam Cardiovascular Exam: REGULAR RHYTHM, +S1, +S2 - GI/Abdominal Exam GI & Abdominal Exam: Soft, Normal Bowel Sounds. absent: Firm, Rigid, Tenderness - Extremities Exam Extremities Exam: Full ROM, Normal Capillary Refill, Normal Inspection - Back Exam Back Exam: NORMAL INSPECTION - Neurological Exam Neurological Exam: Alert, Awake, Normal Gait, Oriented x3 - Psychiatric Exam Psychiatric exam: Normal Affect, Normal Mood - Skin Skin Exam: Dry, Intact, Normal Color, Warm Assessment and Plan - Assessment and Plan (Free Text) Plan: UTI -afebrile, not tachycardic, no leukocytosis -Abdominal/Pelvic CT with PO contrast shows no acute changes. (see full report) -Urine culture 04/06/18 grew E coli resistent to Bactrim, Ciprofloxacin, Ampicillin -UA on admission +nitrates, +squamous epithelial cells, moderate bacteria -Urine culture prelim shows greater than gram negative khadra 100,000 cfu/mL -Antibiotics: Metronidazole 500 mg Q8H for anaerobic coverage, Aztreonam 2gm Q8H IVPB for gram negative coverage -Toradol 15mg Q6H prn, Tylenol 650mg Q6H prn fever -Infectious disease consulted, Dr. Dunbar - Due to KELLIE & abx coverage, ID recommending aztreonam 2g Q8 for 12 additional days (through 04/24) - PICC line order placed 04/12, attempted consent, but patient requested more time to think about. -pt has decided to not have a PICC line inserted because she is afraid that it will get infected if she goes home -I explained to the pt that although this may happen, it is also possible to be infected while in the hospital, and with drug resistant microbes. Pt is adamant that she does not want the PICC line. - infusion placement - f/u with case supervisor Diarrhea Colitis, previous Hx -no episode of diarrhea -describes soft bowel movements -lipase is normal as noted above -cdiff is negative, fecal leukocytes are not present -f/u ova and parasite -- negative - fecal fat, lactoferrin -flagyl 500 mg Q8H Upper respiratory tract infection -Patient with cough productive of clear sputum, which is alleviated by Robitussin -continue Robitussin 100mg Q4H prn cough -CXR shows no active disease Low Back pain -Lumbar Xray 01/2018 showed probable L5-S1 disc space narrowing -mild, no compression fractures (see full report) -Toradol 15mg Q6H prn pain History of Hypertension -Lisinopril 5mg PO daily at home -continue to monitor - not on IVF Colon cancer s/p partial colon resection -Last colonoscopy was btw end of 2016-beginning of 2017, patient states it was normal PPX/Diet -Protonix 40mg IVP daily for GI ppx -Lovenox 40mg SC daily for VTE ppx -Lactobacillus for GI ppx -HHD Dispo: ID recommending Aztreonam 1g Q8 for 12 additional days (through 04/24). Pt does not want a PICC line, and antibiotics will continue to be given through peripheral line. Plan to be discussed with Raman Kumar, PGY-1
[2018-04-15 07:39] LABS: BASO % 0.7 % (0.0-2.0); EOS # 0.1 K/uL (0.0-0.7); EOS % 2.3 % (0.0-4.0); LYMPH # 1.8 K/uL (1.0-4.3); LYMPH % 35.3 % (20.0-40.0); MEAN CELL VOLUME 86.6 fL (81.0-99.0); MEAN CORPUSCULAR HGB CONC 34.6 g/dL (33.0-37.0); MEAN PLATELET VOLUME 9.7 fL (7.2-11.7); MONO # 0.4 K/uL (0.0-0.8); MONO % 7.3 % (0.0-10.0); NEUT # 2.8 K/uL (1.8-7.0); NEUT % 54.4 % (50.0-75.0); RBC 4.35 Mil/uL (3.80-5.20); RED CELL DISTRIBUTION WIDTH 12.7 % (11.5-14.5); WHITE BLOOD COUNT 5.2 K/uL (4.8-10.8)
[2018-04-15 09:22] LABS: BLOOD UREA NITROGEN 10 mg/dL (7-17); CALCIUM 9.5 mg/dl (8.6-10.4); GFR NON-AFRICAN AMERICAN > 60
[2018-04-15 09:23] LABS: ALB/GLOB RATIO 1.1 (1.0-2.1); ALBUMIN 3.9 g/dL (3.5-5.0); ALT/SGPT 151 U/L (9-52); AST/SGOT 146 U/L (14-36)
[2018-04-15] MEDS: Lactobacillus Acidophilus 500 MU Cap PO SCH ×2 (09:26→17:28)
[2018-04-15] MEDS: Enoxaparin 40 mg Syringe SC SCH (09:28)
[2018-04-15] MEDS: Cefpodoxime (Vantin) 200 mg Tab PO SCH (17:28)
--- NOTE | 2018-04-15 17:55 | CP.PCM.PN ---
Subjective - Date & Time of Evaluation Date of Evaluation: 04/15/18 Time of Evaluation: 14:00 - Subjective Subjective: dictated Objective - Vital Signs/Intake and Output Vital Signs (last 24 hours): Temp Pulse Resp BP Pulse Ox 98.1 F 65 20 119/80 98 04/15/18 16:00 04/15/18 16:00 04/15/18 16:00 04/15/18 16:00 04/15/18 16:00 Intake and Output: 04/15/18 04/15/18 06:59 18:59 Intake Total 900 700 Balance 900 700 - Medications Medications: Current Medications Cefpodoxime Proxetil (Vantin) 200 mg PO Q12H [facility]; Protocol Last Admin: 04/15/18 17:28 Dose: 200 mg Enoxaparin Sodium (Lovenox) 40 mg SC DAILY [facility] Last Admin: 04/15/18 09:28 Dose: Not Given Guaifenesin (Robitussin) 100 mg PO Q4H PRN PRN Reason: Cough Last Admin: 04/14/18 10:03 Dose: 100 mg Metronidazole (Flagyl) 500 mg in 100 mls @ 100 mls/hr IVPB Q8H [facility]; Protocol Last Admin: 04/15/18 13:34 Dose: 100 mls/hr Lactobacillus Acidophilus (Bacid Acidophilus) 1 cap PO BID [facility] Last Admin: 04/15/18 17:28 Dose: 1 cap Lisinopril (Zestril) 10 mg PO DAILY [facility] Last Admin: 04/15/18 09:25 Dose: 10 mg Pantoprazole Sodium (Protonix Inj) 40 mg IVP DAILY [facility] Last Admin: 04/15/18 09:25 Dose: 40 mg - Labs Labs: 04/15/18 07:20 04/15/18 07:20
--- NOTE | 2018-04-15 23:45 | PN ---
DATE: 04/15/2018 SUBJECTIVE: She says she still was having some soft stool, but she was feeling better and she still has some pain on the right flank and she has been on Azactam. Her liver enzymes are increasing, so I was planning to change and discussed with the Resident at this time. We will try to give her Vantin and see if she tolerates it and does not develop any rash to it. Only 10% of people who are allergic to penicillin may have a reaction to cephalosporins, we will follow. PHYSICAL EXAMINATION: VITAL SIGNS: T-max is 98.1, pulse 65, blood pressure 119/80, respirations are 20. HEENT: Head is atraumatic, normocephalic. NECK: Supple. LUNGS: Clear at this time. HEART: S1, S2 are regular. ABDOMEN: Soft, nontender. Mild right flank tenderness present. EXTREMITIES: Have no edema. Labs are noted. Labs show white count is 5.2, hemoglobin 13, hematocrit 37.7, platelet count is 217. Her LFTs were going up. AST was 146 and ALT was 151, signifying it could be medications. At this time, we just started Vantin. She is on Lovenox, Robitussin, lactobacillus. She is also on Zestril and metronidazole. I think we can cut down on the metronidazole as Clostridium difficile has been negative and she has had prior colon resection. We will follow and look back again on the abdomen CT, which did not show anything in the gallbladder or in the pancreas. So at this time, we will continue with the Vantin. She received antibiotics from 04/10/2018 to 04/15/2018, like 5 days here and may go with another week's worth of Vantin home if she has no rash and she tolerates it, and along with the Bacid (acidophilus). Juliann Dunbar MD
[2018-04-16] MEDS: Cefpodoxime (Vantin) 200 mg Tab PO SCH ×2 (04:05→17:22)
[2018-04-16 08:03] LABS: BASO % 0.7 % (0.0-2.0); EOS # 0.1 K/uL (0.0-0.7); EOS % 1.6 % (0.0-4.0); HEMOGLOBIN 13.2 g/dL (11.0-16.0); LYMPH # 1.9 K/uL (1.0-4.3); LYMPH % 32.7 % (20.0-40.0); MEAN CELL VOLUME 86.8 fL (81.0-99.0); MEAN CORPUSCULAR HEMOGLOBIN 30.2 pg (27.0-31.0); MEAN CORPUSCULAR HGB CONC 34.8 g/dL (33.0-37.0); MEAN PLATELET VOLUME 9.4 fL (7.2-11.7); MONO # 0.4 K/uL (0.0-0.8); MONO % 7.1 % (0.0-10.0); NEUT # 3.4 K/uL (1.8-7.0); NEUT % 57.9 % (50.0-75.0); RBC 4.38 Mil/uL (3.80-5.20); RED CELL DISTRIBUTION WIDTH 12.9 % (11.5-14.5); WHITE BLOOD COUNT 5.9 K/uL (4.8-10.8)
[2018-04-16 08:08] VITALS: RESP 20
[2018-04-16 08:19] LABS: ALB/GLOB RATIO 1.1 (1.0-2.1); ALT/SGPT 149 U/L (9-52); AST/SGOT 119 U/L (14-36); BLOOD UREA NITROGEN 11 mg/dL (7-17); CALCIUM 9.4 mg/dl (8.6-10.4); GFR NON-AFRICAN AMERICAN > 60
--- NOTE | 2018-04-16 08:52 | CP.PCM.PN ---
Subjective - Date & Time of Evaluation Date of Evaluation: 04/16/18 Time of Evaluation: 08:52 Objective - Vital Signs/Intake and Output Vital Signs (last 24 hours): Temp Pulse Resp BP Pulse Ox 97.6 F 72 20 129/87 96 04/16/18 08:07 04/16/18 08:07 04/16/18 08:07 04/16/18 08:07 04/16/18 08:07 Intake and Output: 04/16/18 04/16/18 06:59 18:59 Intake Total 740 Balance 740 - Medications Medications: Current Medications Cefpodoxime Proxetil (Vantin) 200 mg PO Q12H [facility]; Protocol Last Admin: 04/16/18 04:05 Dose: 200 mg Enoxaparin Sodium (Lovenox) 40 mg SC DAILY [facility] Last Admin: 04/15/18 09:28 Dose: Not Given Guaifenesin (Robitussin) 100 mg PO Q4H PRN PRN Reason: Cough Last Admin: 04/14/18 10:03 Dose: 100 mg Lactobacillus Acidophilus (Bacid Acidophilus) 1 cap PO BID [facility] Last Admin: 04/15/18 17:28 Dose: 1 cap Lisinopril (Zestril) 10 mg PO DAILY [facility] Last Admin: 04/15/18 09:25 Dose: 10 mg Pantoprazole Sodium (Protonix Inj) 40 mg IVP DAILY [facility] Last Admin: 04/15/18 09:25 Dose: 40 mg - Labs Labs: 04/16/18 07:51 04/16/18 07:51
[2018-04-16] MEDS: Lactobacillus Acidophilus 500 MU Cap PO SCH ×2 (09:47→17:22)
[2018-04-16] MEDS: Enoxaparin 40 mg Syringe SC SCH (09:47)
[2018-04-16] MEDS: Fluticasone Nasal 50 mcg/Spray NAS SCH ×2 (10:30→17:22)
--- NOTE | 2018-04-16 15:01 | CP.PCM.PN ---
Subjective - Date & Time of Evaluation Date of Evaluation: 04/16/18 Time of Evaluation: 14:30 - Subjective Subjective: dictated Objective - Vital Signs/Intake and Output Vital Signs (last 24 hours): Temp Pulse Resp BP Pulse Ox 97.6 F 72 20 129/87 96 04/16/18 08:07 04/16/18 08:07 04/16/18 08:07 04/16/18 08:07 04/16/18 08:07 Intake and Output: 04/16/18 04/16/18 06:59 18:59 Intake Total 740 Balance 740 - Medications Medications: Current Medications Cefpodoxime Proxetil (Vantin) 200 mg PO Q12H [facility]; Protocol Last Admin: 04/16/18 04:05 Dose: 200 mg Enoxaparin Sodium (Lovenox) 40 mg SC DAILY [facility] Last Admin: 04/16/18 09:47 Dose: Not Given Fluticasone Propionate (Flonase) 1 spr TARIQ BID [facility] Last Admin: 04/16/18 10:30 Dose: 1 spray Guaifenesin (Robitussin) 100 mg PO Q4H PRN PRN Reason: Cough Last Admin: 04/14/18 10:03 Dose: 100 mg Lactobacillus Acidophilus (Bacid Acidophilus) 1 cap PO BID [facility] Last Admin: 04/16/18 09:47 Dose: 1 cap Lisinopril (Zestril) 10 mg PO DAILY [facility] Last Admin: 04/16/18 09:47 Dose: 10 mg Pantoprazole Sodium (Protonix Inj) 40 mg IVP DAILY [facility] Last Admin: 04/16/18 09:47 Dose: 40 mg - Labs Labs: 04/16/18 07:51 04/16/18 07:51
[2018-04-16 16:12] VITALS: BP 124/85; PULSE 67; TEMP 97.8; O2SAT 98
--- NOTE | 2018-04-16 16:46 | CP.PCM.DIS ---
<Julio Cesar Glaaviz - Last Filed: 04/16/18 19:21> Provider - Provider Date of Admission: 04/10/18 16:49 Attending physician: Austin Valerio MD Primary care physician: Dr. Kessler Consults: ID: Dr. Dunbar Time Spent in preparation of Discharge (in minutes): 35 Hospital Course - Lab Results Lab Results: Micro Results 04/15/18 09:34 Urine Urine Culture - Final No Growth (<1,000 CFU/ML) 04/10/18 14:30 Blood Blood Culture - Final NO GROWTH AFTER 5 DAYS 04/10/18 14:30 Blood Gram Stain - Final TEST NOT PERFORMED 04/10/18 15:00 Blood Blood Culture - Final NO GROWTH AFTER 5 DAYS 04/10/18 15:00 Blood Gram Stain - Final TEST NOT PERFORMED 04/14/18 06:59 Urine Urine Culture - Final No Growth (<1,000 CFU/ML) 04/12/18 20:44 Stool Stool Culture - Final NO SALMONELLA, SHIGELLA OR CAMPYLOBACTER ISOLATED. 04/12/18 20:44 Stool Ova and Parasite Concentrate Exam - Final 04/10/18 13:52 Urine,Clean Catch Urine Culture - Final No Growth (<1,000 CFU/ML) 04/10/18 13:37 Urine Urine Culture - Final Escherichia Coli Most Recent Lab Values WBC 5.9 K/uL (4.8-10.8) 04/16/18 07:51 RBC 4.38 Mil/uL (3.80-5.20) 04/16/18 07:51 Hgb 13.2 g/dL (11.0-16.0) 04/16/18 07:51 Hct 38.0 % (34.0-47.0) 04/16/18 07:51 MCV 86.8 fL (81.0-99.0) 04/16/18 07:51 MCH 30.2 pg (27.0-31.0) 04/16/18 07:51 MCHC 34.8 g/dL (33.0-37.0) 04/16/18 07:51 RDW 12.9 % (11.5-14.5) 04/16/18 07:51 Plt Count 211 K/uL (130-400) 04/16/18 07:51 MPV 9.4 fL (7.2-11.7) 04/16/18 07:51 Neut % (Auto) 57.9 % (50.0-75.0) 04/16/18 07:51 Lymph % (Auto) 32.7 % (20.0-40.0) 04/16/18 07:51 Randolph % (Auto) 7.1 % (0.0-10.0) 04/16/18 07:51 Eos % (Auto) 1.6 % (0.0-4.0) 04/16/18 07:51 Baso % (Auto) 0.7 % (0.0-2.0) 04/16/18 07:51 Neut # (Auto) 3.4 K/uL (1.8-7.0) 04/16/18 07:51 Lymph # (Auto) 1.9 K/uL (1.0-4.3) 04/16/18 07:51 Randolph # (Auto) 0.4 K/uL (0.0-0.8) 04/16/18 07:51 Eos # (Auto) 0.1 K/uL (0.0-0.7) 04/16/18 07:51 Baso # (Auto) 0.0 K/uL (0.0-0.2) 04/16/18 07:51 Sodium 143 mmol/L (132-148) 04/16/18 07:51 Potassium 4.0 mmol/L (3.6-5.2) 04/16/18 07:51 Chloride 108 mmol/L (98-107) H 04/16/18 07:51 Carbon Dioxide 25 mmol/L (22-30) 04/16/18 07:51 Anion Gap 14 (10-20) 04/16/18 07:51 BUN 11 mg/dL (7-17) 04/16/18 07:51 Creatinine 0.7 mg/dL (0.7-1.2) 04/16/18 07:51 Est GFR ( Amer) > 60 04/16/18 07:51 Est GFR (Non-Af Amer) > 60 04/16/18 07:51 Random Glucose 96 mg/dL (65-105) 04/16/18 07:51 Lactic Acid 1.3 mmol/L (0.7-2.1) 04/10/18 14:44 Calcium 9.4 mg/dl (8.6-10.4) 04/16/18 07:51 Phosphorus 3.5 mg/dL (2.5-4.5) 04/16/18 07:51 Magnesium 1.8 mg/dL (1.6-2.3) 04/16/18 07:51 Total Bilirubin 0.4 mg/dL (0.2-1.3) 04/16/18 07:51 AST 119 U/L (14-36) H 04/16/18 07:51 ALT 149 U/L (9-52) H 04/16/18 07:51 Alkaline Phosphatase 114 U/L (38-126) 04/16/18 07:51 Total Protein 7.7 g/dL (6.3-8.3) 04/16/18 07:51 Albumin 4.0 g/dL (3.5-5.0) 04/16/18 07:51 Globulin 3.7 gm/dL (2.2-3.9) 04/16/18 07:51 Albumin/Globulin Ratio 1.1 (1.0-2.1) 04/16/18 07:51 Lipase 131 U/L (23-300) 04/10/18 14:44 Urine Color Straw (YELLOW) 04/10/18 13:52 Urine Clarity Clear (Clear) 04/10/18 13:52 Urine pH 6.0 (5.0-8.0) 04/10/18 13:52 Ur Specific [place] 1.006 (1.003-1.030) 04/10/18 13:52 Urine Protein Negative mg/dL (NEGATIVE) 04/10/18 13:52 Urine Glucose (UA) Normal mg/dL (Normal) 04/10/18 13:52 Urine Ketones Negative mg/dL (NEGATIVE) 04/10/18 13:52 Urine Blood Negative (NEGATIVE) 04/10/18 13:52 Urine Nitrate Negative (NEGATIVE) 04/10/18 13:52 Urine Bilirubin Negative (NEGATIVE) 04/10/18 13:52 Urine Urobilinogen Normal mg/dL (0.2-1.0) 04/10/18 13:52 Ur Leukocyte Esterase Neg Becca/uL (Negative) 04/10/18 13:52 Urine WBC (Auto) 1 /hpf (0-5) 04/10/18 13:52 Urine RBC (Auto) < 1 /hpf (0-3) 04/10/18 13:52 Ur Squamous Epith Cells 2 /hpf (0-5) 04/10/18 13:52 Urine Bacteria Mod (<OCC) H 04/10/18 13:37 Stool Fat, Qual See note 04/12/18 20:52 Stool Leukocytes, Qual Negative (NEGATIVE) 04/12/18 20:44 C. difficile Ag & Toxin Negative (NEGATIVE) 04/12/18 20:44 - Hospital Course Hospital Course: On admission HPI: Patient is a 52 year old female with past medical history of hypertension, colitis, colon cancer s/p resection in 2014 who presents to the emergency department for urinary tract infection. Patient states that she was seen at urgent care for foul smelling urine and was prescribed Ciprofloxacin 4 days ago. Patient received a call from her PMD today stating the urine culture was resistant to both ciprofloxacin and bactrim and instructed her to come to the emergency dept. Patient states that for the past six months she has been experiencing right sided low back pain that is now radiating to the left. Pain is constant in nature, worse with movement. Denies any alleviating factors. Rates the pain a 9/10 on pain scale. She admits to using Tylenol and Ibuprofen at home with minimal relief. She also states that she has been having foul smelling urine since before October 2017. She admits to some urinary incontinence, where she loses urine before making it to the bathroom. She denies any dysuria or pain with urination. For the past few days, patient reports having lower abdominal pain. States that the pain "feels like my intestines are raw". She has 3-4 episodes of mucoid diarrhea yesterday, denies any bowel movement today. She also admits to having a fever of 101.0 yesterday as well that improved with Tylenol. Reports that her last colitis flare up was a couple of months ago. She denies nausea/vomiting, headaches, dizziness, cp, palpitations, sob, saddle anesthesia, loss of bowel function, blood in the stool, hematuria. Hospital course: Patient was admitted for Urinary Tract Infection after patient's urine culture was resistant to Ciprofloxacin and Bactrim. Urinalysis on admission revealed nitrates, squamous epithelial cells and moderate bacteria indicative of urinary tract infection. Urine culture obtained on 04/06/18 revealed E coli resistant to Bactrim, Ciprofloxacin and Ampicillin. ID Dr. Dunbar was consulted. Patient was initially started on Metronidazole 500mg and Aztreonam 2g however Aztreonam was later discontinued given increasing liver enzymes, and started on Vantin 200mg PO BID as per ID Dr. Dunbar who was aware of PCN allergy. Patient received 2 doses of Vantin 200mg with no evidence of allergic reaction or anaphylaxis, including rash, urticaria, shortness of breath. Plan was made with ID to discharge patient home for 8 day course of Vantin 200mg twice daily. On discharge, repeat urine culture from 04/15/18 was negative. Blood cultures were negative for growth. Patient also experienced soft bowel movements during her admission. Stool cultures were negative for Salmonella, Shigella and campylobactera, fecal leukocytes and C diff were negative. Patient had a nonproductive cough, which improved for which she was given Robitussin. She also complained of nasal congestion for which she was given Flonase. Patient was continued on Lisinopril 5mg given her history of hypertension. During the course of her admission, her dose was increased to 10mg. Imaging: Abdomen/pelvis CT without IV contrast: no acute findings. CXR: no active disease. No significant interval change compared to prior exam. This is a brief summary of hospital events. Please refer to medical records for full details Discharge instructions provided at time of discharge: Follow up with PMD Dr. Kessler for elevated liver function tests. Continue taking Vantin 200mg by mouth for 8 days given you did not have an allergic or adverse reaction. Prescriptions: Vantin 200mg by mouth twice a day for 8 days. Disp # 16 (sixteen) Bacid 1 cap by mouth twice day for 10 days. Disp # 20 (twenty) Lisinopril 10mg by mouth once daily. Disp # 30 (thirty) Discharge Exam - Head Exam Head Exam: ATRAUMATIC, NORMAL INSPECTION, NORMOCEPHALIC - Eye Exam Eye Exam: EOMI, PERRL - ENT Exam ENT Exam: Mucous Membranes Moist - Respiratory Exam Respiratory Exam: Clear to PA & Lateral, NORMAL BREATHING PATTERN. absent: Decreased Breath Sounds, Rales, Rhonchi, Wheezes, Respiratory Distress - Cardiovascular Exam Cardiovascular Exam: REGULAR RHYTHM, +S1, +S2 - GI/Abdominal Exam GI & Abdominal Exam: Normal Bowel Sounds, Soft. absent: Distended, Firm, Guarding, Hernia, Tenderness - Extremities Exam Extremities exam: pedal pulses present Additional comments: no calf tenderness, no lower extremity edema - Back Exam Back exam: CVA tenderness (R) (minimal). absent: CVA tenderness (L) - Neurological Exam Neurological exam: Alert, CN II-XII Intact, Oriented x3 - Psychiatric Exam Psychiatric exam: Normal Affect, Normal Mood - Skin Skin Exam: Dry, Intact, Warm Discharge Plan - Discharge Medications Prescriptions: RX: Cefpodoxime [Vantin] 200 mg PO Q12H #16 tab RX: Lactobacillus Acidophilus [Bacid Acidophilus] 1 cap PO BID #20 cap RX: Lisinopril [Zestril] 10 mg PO DAILY #30 tab - Follow Up Plan Condition: STABLE Disposition: HOME/ ROUTINE Instructions: Heart Healthy Diet, Cefpodoxime, Lactobacillus, Lisinopril, Kid daniela Infection (DC), Urinary Tract Infection in Women (DC) Additional Instructions: Follow up with PMD Dr. Kessler for elevated liver function tests. Continue taking Vantin 200mg by mouth for 8 days given you did not have an allergic or adverse reaction. Prescriptions: Vantin 200mg by mouth twice a day for 8 days. Disp # 16 (sixteen) Bacid 1 cap by mouth twice day for 10 days. Disp # 20 (twenty) Lisinopril 10mg by mouth once daily. Disp # 30 (thirty) Referrals: Zoran Kessler [Staff Provider] - <Austin Valerio - Last Filed: 04/17/18 07:42> Provider - Provider Date of Admission: 04/10/18 16:49 Attending physician: Austin Valerio MD Hospital Course - Lab Results Lab Results: Micro Results 04/15/18 09:34 Urine Urine Culture - Final No Growth (<1,000 CFU/ML) 04/10/18 14:30 Blood Blood Culture - Final NO GROWTH AFTER 5 DAYS 04/10/18 14:30 Blood Gram Stain - Final TEST NOT PERFORMED 04/10/18 15:00 Blood Blood Culture - Final NO GROWTH AFTER 5 DAYS 04/10/18 15:00 Blood Gram Stain - Final TEST NOT PERFORMED 04/14/18 06:59 Urine Urine Culture - Final No Growth (<1,000 CFU/ML) 04/12/18 20:44 Stool Stool Culture - Final NO SALMONELLA, SHIGELLA OR CAMPYLOBACTER ISOLATED. 04/12/18 20:44 Stool Ova and Parasite Concentrate Exam - Final 04/10/18 13:52 Urine,Clean Catch Urine Culture - Final No Growth (<1,000 CFU/ML) 04/10/18 13:37 Urine Urine Culture - Final Escherichia Coli Most Recent Lab Values WBC 5.9 K/uL (4.8-10.8) 04/16/18 07:51 RBC 4.38 Mil/uL (3.80-5.20) 04/16/18 07:51 Hgb 13.2 g/dL (11.0-16.0) 04/16/18 07:51 Hct 38.0 % (34.0-47.0) 04/16/18 07:51 MCV 86.8 fL (81.0-99.0) 04/16/18 07:51 MCH 30.2 pg (27.0-31.0) 04/16/18 07:51 MCHC 34.8 g/dL (33.0-37.0) 04/16/18 07:51 RDW 12.9 % (11.5-14.5) 04/16/18 07:51 Plt Count 211 K/uL (130-400) 04/16/18 07:51 MPV 9.4 fL (7.2-11.7) 04/16/18 07:51 Neut % (Auto) 57.9 % (50.0-75.0) 04/16/18 07:51 Lymph % (Auto) 32.7 % (20.0-40.0) 04/16/18 07:51 Randolph % (Auto) 7.1 % (0.0-10.0) 04/16/18 07:51 Eos % (Auto) 1.6 % (0.0-4.0) 04/16/18 07:51 Baso % (Auto) 0.7 % (0.0-2.0) 04/16/18 07:51 Neut # (Auto) 3.4 K/uL (1.8-7.0) 04/16/18 07:51 Lymph # (Auto) 1.9 K/uL (1.0-4.3) 04/16/18 07:51 Randolph # (Auto) 0.4 K/uL (0.0-0.8) 04/16/18 07:51 Eos # (Auto) 0.1 K/uL (0.0-0.7) 04/16/18 07:51 Baso # (Auto) 0.0 K/uL (0.0-0.2) 04/16/18 07:51 Sodium 143 mmol/L (132-148) 04/16/18 07:51 Potassium 4.0 mmol/L (3.6-5.2) 04/16/18 07:51 Chloride 108 mmol/L (98-107) H 04/16/18 07:51 Carbon Dioxide 25 mmol/L (22-30) 04/16/18 07:51 Anion Gap 14 (10-20) 04/16/18 07:51 BUN 11 mg/dL (7-17) 04/16/18 07:51 Creatinine 0.7 mg/dL (0.7-1.2) 04/16/18 07:51 Est GFR ( Amer) > 60 04/16/18 07:51 Est GFR (Non-Af Amer) > 60 04/16/18 07:51 Random Glucose 96 mg/dL (65-105) 04/16/18 07:51 Lactic Acid 1.3 mmol/L (0.7-2.1) 04/10/18 14:44 Calcium 9.4 mg/dl (8.6-10.4) 04/16/18 07:51 Phosphorus 3.5 mg/dL (2.5-4.5) 04/16/18 07:51 Magnesium 1.8 mg/dL (1.6-2.3) 04/16/18 07:51 Total Bilirubin 0.4 mg/dL (0.2-1.3) 04/16/18 07:51 AST 119 U/L (14-36) H 04/16/18 07:51 ALT 149 U/L (9-52) H 04/16/18 07:51 Alkaline Phosphatase 114 U/L (38-126) 04/16/18 07:51 Total Protein 7.7 g/dL (6.3-8.3) 04/16/18 07:51 Albumin 4.0 g/dL (3.5-5.0) 04/16/18 07:51 Globulin 3.7 gm/dL (2.2-3.9) 04/16/18 07:51 Albumin/Globulin Ratio 1.1 (1.0-2.1) 04/16/18 07:51 Lipase 131 U/L (23-300) 04/10/18 14:44 Urine Color Straw (YELLOW) 04/10/18 13:52 Urine Clarity Clear (Clear) 04/10/18 13:52 Urine pH 6.0 (5.0-8.0) 04/10/18 13:52 Ur Specific [place] 1.006 (1.003-1.030) 04/10/18 13:52 Urine Protein Negative mg/dL (NEGATIVE) 04/10/18 13:52 Urine Glucose (UA) Normal mg/dL (Normal) 04/10/18 13:52 Urine Ketones Negative mg/dL (NEGATIVE) 04/10/18 13:52 Urine Blood Negative (NEGATIVE) 04/10/18 13:52 Urine Nitrate Negative (NEGATIVE) 04/10/18 13:52 Urine Bilirubin Negative (NEGATIVE) 04/10/18 13:52 Urine Urobilinogen Normal mg/dL (0.2-1.0) 04/10/18 13:52 Ur Leukocyte Esterase Neg Becca/uL (Negative) 04/10/18 13:52 Urine WBC (Auto) 1 /hpf (0-5) 04/10/18 13:52 Urine RBC (Auto) < 1 /hpf (0-3) 04/10/18 13:52 Ur Squamous Epith Cells 2 /hpf (0-5) 04/10/18 13:52 Urine Bacteria Mod (<OCC) H 04/10/18 13:37 Stool Fat, Qual See note 04/12/18 20:52 Stool Leukocytes, Qual Negative (NEGATIVE) 04/12/18 20:44 Stl Lactoferrin (ROSHAN) <30.0 mcg/mL (<30.0) 04/12/18 20:44 C. difficile Ag & Toxin Negative (NEGATIVE) 04/12/18 20:44 Attending/Attestation - Attestation I have personally seen and examined this patient.: Yes I have fully participated in the care of the patient.: Yes I have reviewed all pertinent clinical information, including history, physical exam and plan: Yes Notes (Text): Reday for discharge. D/W Dr Dunbar .recommending 8days simi 04/17/18 07:41
--- NOTE | 2018-04-16 21:23 | PN ---
DATE: 04/16/2018 INFECTIOUS DISEASE FOLLOWUP SUBJECTIVE: The patient is afebrile. She was given Vantin and she tolerated it well. There is no rash. No throat closing or any major episode. The patient has been tolerating it well, and her liver enzymes are also getting better. She denies any urinary symptoms. She seems to be getting ready to go home. I also told her to follow up her blood tests, looking for liver enzymes in week to two weeks to see if they are coming down. She was seen with the PMD. She denies any urinary symptoms now. Has very minimal right-sided flank pain. PHYSICAL EXAMINATION: VITAL SIGNS: The patient is afebrile, T-max is 97.8, pulse 67. Blood pressure is 124/85, respirations are 20. HEENT: Head is atraumatic and normocephalic. Pupils are reacting to light. NECK: Supple. LUNGS: Clear. No crackles or rales present. ABDOMEN: Soft, nontender. No guarding, no rigidity present. EXTREMITIES: Have no edema. ASSESSMENT AND PLAN: The patient will be going home on Vantin and will be getting Vantin one tablet orally b.i.d. for eight days to complete the course for pyelonephritis. She does have pyelonephritis, history of colon cancer and will follow with her primary. I think she tolerated Vantin well and should not have any problems. Juliann Dunbar MD
== END 2018-04-16 17:40 | disposition home or self-care (01) | DRG 690 ==
LOC: C.ER 12:30 → C.9E 16:49 → OBSVTOIN 16:49 → C.3T 21:43 → UNDODISOB 22:35
PROVIDERS: ADMIT Internal Medicine; ATTEND Internal Medicine
DX: N12 Tubulo-interstitial nephritis, not specified as acute or chronic (principal); E11.9 Type 2 diabetes mellitus without complications; I10 Essential (primary) hypertension; J06.9 Acute upper respiratory infection, unspecified; Z85.038 Personal history of other malignant neoplasm of large intestine; B96.20 Unspecified Escherichia coli [E. coli] as the cause of diseases classified elsewhere; R19.7 Diarrhea, unspecified; Z88.0 Allergy status to penicillin; Z16.39 Resistance to other specified antimicrobial drug